=== PATIENT | female | born 1960 | race Caucasian/White ===

== ENCOUNTER 2022-12-28 13:47 | Outpatient (CLI) | payer OTHER, SELFPAY | END 2022-12-28 13:48 | disposition home or self-care (01) | PROVIDERS: Visit Provider Registered Nurse | DX: R30.0 Dysuria (principal); N39.0 Urinary tract infection, site not specified | CPT/HCPCS: 87086; 87186 ==

== ENCOUNTER 2023-01-09 20:38 | Inpatient (IN) | payer OTHER, SELFPAY ==
[2023-01-09] VITALS (42 sets, daily range): BP systolic 103–134; BP diastolic 67–100; PULSE 47–181; RESP 15–27; TEMP 37; O2SAT 96–98
[2023-01-09] MEDS: ADENOSINE 6 MG/2ML INJ IVP (21:05)
[2023-01-09] MEDS: ADENOSINE 6 MG/2ML INJ 12 MG IVP ×2 (21:09→21:19)
--- NOTE | 2023-01-09 21:12 | ED.NURSE ---
Patient given 3 doses of adenosine per MD Blank. Abhay at the bedside. Patient given 6mg at 2104 and 12mg at 2108. After first dose of adenosine patient converted to NSR but then went right back into SVT. Patient given second dose of adenosine and again converted back to SVT. Patient given 3rd dose of adenosine (12mg) given at 2118. Patient given 10mg of diltiazem at 2122.
[2023-01-09] MEDS: dilTIAZem 5 MG/ML inj 10 MG IVP ×2 (21:23→21:40)
[2023-01-09 21:28] LABS: Lactate* 2.7 mmol/L (0.5-1.9)
[2023-01-09 21:33] LABS: Eosinophils Percent Auto 0.2 % (0.0-7.0); Hematocrit 40.7 % (33.0-51.0); Hemoglobin* 14.1 gm/dL (12.0-16.0); Lymphocytes Percent Auto 4.2 % (20-44); Mean Corpuscular HGB Conc 35 gm/dL (32-36); Mean Corpuscular Hemoglobin 27 pg (26-34); Mean Corpuscular Volume 79 fL (80-100); Monocytes Percent Auto 6.3 % (0.0-11.0); Neutrophils Percent Auto 87.6 % (42.0-72.0); Platelet Count* 283 K/uL (140-440); RDW Coefficient of Variation % 13.9 % (11.5-15.5); Red Blood Count 5.17 m/uL (4.00-5.20); White Blood Count* 13.66 K/uL (4.50-11.00)
[2023-01-09 21:34] LABS: Basophils Percent Auto 0.1 % (0.0-3.0); Immature Granulocytes Pct Auto 1.6 %; Slide Review Reflex No
[2023-01-09 21:36] LABS: pH VBG 7.375 (7.32-7.43)
[2023-01-09 21:37] LABS: HCO3 VBG 19 mmol/L (21-28); PCO2 VBG 32 mmHG (40-50); PO2 VBG 36.2 mmHG (25-47)
[2023-01-09 21:41] LABS: Troponin, Point-of-Care* 0.02 ng/ml (0.01-0.04)
[2023-01-09] MEDS: 0.9 % SODIUM CHLORIDE 1000 ml 1,000 ML IV (21:42)
[2023-01-09] MEDS: 0.9 % SODIUM CHLORIDE 1000 ml 1,000 ML 6000 ML IV (21:45)
[2023-01-09] MEDS: INSULIN INF 100 UNIT/100 ML 100 UNIT/100 ML BAG IVPB ×2 (21:46→22:39)
[2023-01-09 21:51] LABS: Magnesium* 1.5 mg/dL (1.5-2.6)
[2023-01-09 21:52] LABS: Calcium* 9.3 mg/dL (8.4-10.6)
[2023-01-09 22:07] LABS: Blood Urea Nitrogen* 30 mg/dL (7-30); Carbon Dioxide* 16 mmol/L (20-32); Chloride* 80 mmol/L (96-114); Creatinine* 1.1 mg/dL (0.5-1.5); Estimated Glomerular Filt Rate 56 ml/min; Potassium* 4.8 mmol/L (3.6-5.1); Sodium* 118 mmol/L (135-149)
[2023-01-09 22:08] LABS: Alanine Aminotransferase* 18 U/L (4-35); Albumin* 3.9 g/dL (3.3-5.0); Alkaline Phosphatase* 147 U/L (40-150); Aspartate Amino Transferase* 17 U/L (12-35); Bilirubin Direct* 0.8 mg/dL (0.0-0.5); Bilirubin Total* 1.2 mg/dL (0.1-1.5); Glucose* 622 mg/dL (60-115); Total Protein* 8.1 g/dL (6.0-8.3)
[2023-01-09 22:21] LABS: Erythrocyte SedimentationRate* 75 mm/hr (2-20); Phosphorus* 3.5 mg/dL (2.5-4.5)
[2023-01-09 22:24] LABS: Appearance Urine Cloudy (Clear); Bilirubin Urine Negative (Negative); Blood Urine 1+ (Negative); Color Urine Yellow (Yellow); Glucose Urine 3+ (Negative); Ketones Urine 2+ (Negative); Leukocyte Esterase Urine 1+ (Negative); Nitrite Urine Negative (Negative); Protein Urine Negative (Negative); Specific Gravity Urine <= 1.005 (1.000-1.030); Urobilinogen Urine 0.2 (0.2-1.0)
[2023-01-09 22:29] LABS: C Reactive Protein* 38.6 mg/dL (0.5-1.0)
[2023-01-09 22:32] LABS: Hemoglobin A1C* 13.99 % (0-5.6)
--- NOTE | 2023-01-09 22:42 | CRLHL7_ITS ---
For Patients: As a result of the Century Cures Act, medical imaging exams and procedure reports are released immediately into your electronic medical record. You may view this report before your referring provider. If you have questions, please contact your health care provider. INDICATION: Weakness. TECHNIQUE: Chest 2 views. COMPARISON: None. FINDINGS: Cardiovascular and mediastinum: Heart size and vasculature are normal in caliber and appearance. Lungs and pleural spaces: The lungs are clear. No pleural effusion or pneumothorax. Bones and soft tissues: Questionable vertebral plana of a lower thoracic vertebral body. Otherwise, unremarkable for age. IMPRESSION: No evidence of an acute pulmonary process. Questionable vertebral plana of a lower thoracic vertebral body. This could represent a confluence of shadows as well. Recommend correlation with site for focal tenderness. Recommend CT if there is concern for an acute injury. Dictated by Supa Reyes MD @ 01/09/2023 11:57:38 PM (Electronically Signed)
[2023-01-09 22:44] LABS: Troponin I* 0.03 ng/mL (0.01-0.04)
[2023-01-09 22:48] LABS: Bacteria Urine Few; Mucus Urine Few; Squamous Epithelial Cell Urine Few (None-Few)
--- NOTE | 2023-01-09 22:50 | ED.NURSE ---
Patient report given to Yudy FAM in CCU
--- NOTE | 2023-01-09 22:54 | ED_ITS ---
HPI - General Adult General Chief complaint: Weakness Stated complaint: weakness, lethargic Time Seen by Provider: 01/09/23 20:54 Source: patient Mode of arrival: ambulatory Limitations: no limitations History of Present Illness HPI narrative: 62-year-old female coming in today complaining of not feeling well. She states that she feels weak and tired has been feeling this way for several weeks. She states in the last 2-3 days her symptoms have gotten worse. She denies any chest pain. She is not short of breath. She denies any abdominal discomfort. She states that her appetite has not been very good for the last couple weeks and she has been losing weight. She denies any diarrhea. She does endorse increased urinary frequency and the feeling that she can never quite empty her bladder. No fevers or chills. No sick contacts that she is aware of. She was recently diagnosed with a UTI after she went to the urgent care and treated with Macrobid she feels like her UTI symptoms did get a little bit better however when they then returned. She denies any recent illness cough, congestion or sore throat. Patient does not have a primary care provider and does not doctor regularly. She takes no medications. Related Data Home Medications Medication Instructions Recorded Confirmed No Known Home Medications 01/09/23 01/09/23 Allergies Allergy/AdvReac Type Severity Reaction Status Date / Time No Known Drug Allergies Allergy Verified 01/09/23 20:56 Review of Systems Status of ROS: Reports: 10 or more systems reviewed and unremarkable except as noted in History and below [facility] Medical History Diabetes mellitus ?E11.9 - Type 2 diabetes mellitus without complications (ICD-10) Hyperosmolar hyperglycemic state (HHS) ?E11.00 - Type 2 diabetes mellitus with hyperosmolarity without nonketotic hyperglycemic-hyperosmolar coma (NKHHC) (ICD-10) Family History (Updated 01/09/23 @ 23:04 by Blaine Cantrell MD) Brother Diabetes High blood pressure Father Diabetes High blood pressure Social History Smoking Status: Never smoker Exam Narrative: Exam Narrative: Well-nourished well-developed patient in no acute distress. Alert and oriented x3. Answers questions appropriately. Mood and affect are appropriate. Thoughts are goal oriented and rational. No tangential or magical thinking noted. Patient speaks in full sentences without needing to catch her breath. HEENT: Normocephalic atraumatic. Pupils are equally round reactive to light. Extraocular muscles are intact. Conjunctivae are moist without any icterus noted. Dry mucous membranes. Posterior pharynx is normal. Neck is soft without any lymphadenopathy or thyromegaly. No masses are appreciated. Cardiovascular: Tachycardic with a pulse of 180, regular rhythm. No murmurs appreciated. Lungs: Clear to auscultation bilaterally no wheezes rhonchi or rales are appreciated. Patient takes deep breaths without any discomfort. Abdomen: Soft and nontender nondistended with normal bowel sounds. No guarding or rebound. No masses or organomegaly appreciated. Extremities: Bilateral lower extremities are without edema. Skin: Well perfused without any obvious rashes. Const: Vital Signs, click to edit/add: Vital Signs - 24 hr 01/09/23 20:56 01/09/23 21:51 01/09/23 21:52 Temperature Pulse Rate 97 111 H Pulse Rate [Right Pulse Oximeter] 180 H Respiratory Rate 24 Blood Pressure 111/76 Blood Pressure [Ri ght Upper Arm] 114/91 H Pulse Oximetry 98 97 97 Oxygen Delivery Me thod Room Air 01/09/23 21:53 01/09/23 21:54 01/09/23 21:56 Temperature Pulse Rate 110 H 112 H 114 H Pulse Rate [Right Pulse Oximeter] Respiratory Rate Blood Pressure Blood Pressure [Ri ght Upper Arm] Pulse Oximetry 97 96 97 Oxygen Delivery Hi thod 01/09/23 21:58 01/09/23 22:00 01/09/23 22:01 Temperature Pulse Rate 121 H 113 H 130 H Pulse Rate [Right Pulse Oximeter] Respiratory Rate Blood Pressure 130/83 Blood Pressure [Ri ght Upper Arm] Pulse Oximetry 96 96 97 Oxygen Delivery Me thod 01/09/23 22:02 01/09/23 22:04 01/09/23 22:06 Temperature Pulse Rate 112 H 117 H 117 H Pulse Rate [Right Pulse Oximeter] Respiratory Rate Blood Pressure Blood Pressure [Ri ght Upper Arm] Pulse Oximetry 97 97 98 Oxygen Delivery Hi thod 01/09/23 22:08 01/09/23 21:07 01/09/23 20:46 Temperature Pulse Rate 118 H Pulse Rate [Right Pulse Oximeter] 176 H Respiratory Rate 27 H Blood Pressure Blood Pressure [Ri ght Upper Arm] 122/85 121/100 H Pulse Oximetry 97 98 Oxygen Delivery Me thod 01/09/23 20:53 01/09/23 21:03 01/09/23 21:05 Temperature 98.6 F Pulse Rate Pulse Rate [Right Pulse Oximeter] 178 H 176 H 47 L Respiratory Rate 20 22 Blood Pressure Blood Pressure [Ri ght Upper Arm] 114/91 H 104/87 112/76 Pulse Oximetry 98 98 97 Oxygen Delivery Me thod Room Air Room Air 01/09/23 21:06 01/09/23 21:08 01/09/23 21:09 Temperature Pulse Rate Pulse Rate [Right Pulse Oximeter] 181 H 174 H 55 L Respiratory Rate 22 23 24 Blood Pressure Blood Pressure [Ri ght Upper Arm] 123/86 123/90 H 111/87 Pulse Oximetry 97 96 96 Oxygen Delivery Me thod Room Air 01/09/23 21:28 01/09/23 21:40 01/09/23 21:21 Temperature Pulse Rate Pulse Rate [Right Pulse Oximeter] 112 H 156 H 121 H Respiratory Rate 20 23 20 Blood Pressure Blood Pressure [Ri ght Upper Arm] 125/79 129/89 132/90 H Pulse Oximetry 97 97 97 Oxygen Delivery Me thod Room Air 01/09/23 21:36 01/09/23 22:50 01/09/23 21:19 Temperature Pulse Rate Pulse Rate [Right Pulse Oximeter] 156 H 116 H 67 Respiratory Rate 22 21 21 Blood Pressure Blood Pressure [Ri ght Upper Arm] 124/93 H 113/83 Pulse Oximetry 96 97 98 Oxygen Delivery Me thod 01/09/23 21:20 Temperature Pulse Rate Pulse Rate [Right Pulse Oximeter] 122 H Respiratory Rate 21 Blood Pressure Blood Pressure [Ri ght Upper Arm] 129/90 H Pulse Oximetry 98 Oxygen Delivery Me thod Course Course Hospital Course: IV was immediately established an EKG was done showing supraventricular tachycardia. Labs were drawn and patient received 6 mg of IV adenosine. Patient's pulse went into the 70s for a few seconds before going back into SVT at a pulse of 177. We repeated the adenosine dose at 12 mg without success and a 2nd time at 12 mg. At this time we got her her pulse into the 150s. Repeat EKG showing sinus tachycardia. Did then proceed with a dose of IV Cardizem. In the meantime patient had received already a L of normal saline and a 2 L was started. A bedside Accu-Chek to showed a glucose of greater than 500. Patient received 10 units of regular insulin and insulin drip was started. Labs showed significant hyponatremia, glucose of over 600, elevated lactate. In patient's presentation and labs were consistent with hyperosmolar hyperglycemic state of untreated type 2 diabetes. Patient remained hemodynamically stable, we did get her pulse to come down into the 1-teens after fluids and a no other dose of IV Cardizem. Repeat EKG showing continued sinus tachycardia, no longer in SVT. Vital Signs Vital signs: Initial Vital Signs Blood Pressure 121/100 H 01/09/23 20:46 Blood Pressure Mean 107 01/09/23 20:46 Vital Signs Blood Pressure 121/100 H 01/09/23 20:46 Temperature 98.6 F 01/09/23 21:03 Pulse Rate 116 H 01/09/23 22:50 Respiratory Rate 21 01/09/23 22:50 Blood Pressure 130/83 01/09/23 22:01 Pulse Oximetry 97 01/09/23 22:50 Oxygen Delivery Method Room Air 01/09/23 21:28 Medical Decision Making MDM Narrative Medical decision making narrative: 62-year-old female with diabetes mellitus and hyper osmolar hyperglycemic state, presenting with SVT. Patient will be admitted for further management. Lab Data Lab results reviewed: Yes I reviewed the patient's lab results Labs: Lab Results 01/09/23 01/09/23 Range/Units 21:00 21:17 WBC 13.66 H (4.50-11.00) K/uL RBC 5.17 (4.00-5.20) m/uL Hgb 14.1 (12.0-16.0) gm/dL Hct 40.7 (33.0-51.0) % MCV 79 L (80-100) fL MCH 27 (26-34) pg MCHC 35 (32-36) gm/dL RDW Coeff of Hammad 13.9 (11.5-15.5) % Plt Count 283 (140-440) K/uL Neut % (Auto) 87.6 H (42.0-72.0) % Lymph % (Auto) 4.2 L (20-44) % Mcdonald % (Auto) 6.3 (0.0-11.0) % Eos % (Auto) 0.2 (0.0-7.0) % Baso % (Auto) 0.1 (0.0-3.0) % Neut # (Auto) 12.00 H (1.7-7.0) K/uL Lymph # (Auto) 0.60 L (0.90-2.90) K/uL Mcdonald # (Auto) 0.90 (0.00-0.90) K/UL Eos # (Auto) 0.00 (0.00-0.50) K/uL Baso # (Auto) 0.00 (0.00-0.30) K/uL ESR 75 H (2-20) mm/hr VBG pH 7.375 (7.32-7.43) VBG pCO2 32 L (40-50) mmHG VBG pO2 36.2 (25-47) mmHG VBG HCO3 19 L (21-28) mmol/L Sodium 118 L* (135-149) mmol/L Potassium 4.8 (3.6-5.1) mmol/L Chloride 80 L (96-114) mmol/L Carbon Dioxide 16 L (20-32) mmol/L BUN 30 (7-30) mg/dL Creatinine 1.1 (0.5-1.5) mg/dL Estimated GFR 56 ml/min Glucose 622 H* (60-115) mg/dL Hemoglobin A1c 13.99 H (0-5.6) % Lactate 2.7 H (0.5-1.9) mmol/L Calcium 9.3 (8.4-10.6) mg/dL Phosphorus 3.5 (2.5-4.5) mg/dL Magnesium 1.5 (1.5-2.6) mg/dL Total Bilirubin 1.2 (0.1-1.5) mg/dL Direct Bilirubin 0.8 H (0.0-0.5) mg/dL AST 17 (12-35) U/L ALT 18 (4-35) U/L Alkaline Phosphatase 147 (40-150) U/L Troponin I 0.03 (0.01-0.04) ng/mL C-Reactive Protein 38.6 H (0.5-1.0) mg/dL Total Protein 8.1 (6.0-8.3) g/dL Albumin 3.9 (3.3-5.0) g/dL TSH 5.010 H (0.270-4.20) uIU/mL Urine Color Yellow (Yellow) Urine Appearance Cloudy A (Clear) Urine pH 5.0 (5.0-8.5) Ur Specific [place] <= 1.005 (1.000-1.030) Urine Protein Negative (Negative) Urine Glucose (UA) 3+ A (Negative) Urine Ketones 2+ A (Negative) Urine Blood 1+ A (Negative) Urine Nitrite Negative (Negative) Urine Bilirubin Negative (Negative) Urine Urobilinogen 0.2 (0.2-1.0) Ur Leukocyte Esterase 1+ A (Negative) Urine RBC 2-5 A (0-2) Urine WBC 5-10 A (0-5) Ur Squamous Epith Cells Few (None-Few) Urine Bacteria Few A (None) Urine Mucus Few A (None) POC Troponin I 0.02 (0.01-0.04) ng/ml ECG Data Attestation: I personally reviewed and interpreted this ECG as follows: Critical Care Time Critical Care Time Total Critical Care Time in Minutes: 60 Discharge Plan Discharge Clinical Impression: Hyperosmolar hyperglycemic state (HHS), Diabetes mellitus, Hyponatremia, SVT (supraventricular tachycardia) Patient Disposition: Admitted As Inpatient Prescriptions: No Action No Known Home Medications Follow Up/Referrals: Provider,Not a Local [Primary Care Provider] -
--- NOTE | 2023-01-09 22:55 | PM.IMHP1 ---
Hospitalist- H&P: HPI History of Present Illness Date Seen: 01/09/23 Chief complaint: weakness, lethargic Narrative: Tomasa Guillen is a 62 year old female with no significant past medical history presents to the emergency room after syncopal episode at home. She is on the toilet when she had brief loss of consciousness witnessed by her . For 1-2 months she has had urinary urgency and frequency. Twelve days ago she was diagnosed with a UTI with positive leukocyte esterase and 10-25 white cells per high-power field. At that time urinalysis also showed ketones and glucosuria. She received Macrobid and reports that she had improvement in her symptoms but still is having polyuria. On presentation the emergency department she was in SVT with a heart rate of 177. Blood sugar was 622. She was given adenosine and fluids and now is in sinus tachycardia. She was started on insulin drip and her blood sugar is now 487. She has no previous history of cardiac problems or diabetes. She does not note in usual thirst but she has been feeling lightheaded, fatigue, malaise, poor appetite. No chest pain, shortness of breath, vomiting, diarrhea, abdominal pain, fever, cold. She has had some cough recently. She had COVID infection in September. She gets no regular medical attention. She believes her last doctor appointment was 7 or 8 years ago. She has had no medical screening or wellness checks. Her brothers and father have diabetes. Her also has diabetes, diagnosed 2 years ago Review of Systems Narrative: She has been feeling well except as noted above. [facility] Medical History Diabetes mellitus ?E11.9 - Type 2 diabetes mellitus without complications (ICD-10) Hyperosmolar hyperglycemic state (HHS) ?E11.00 - Type 2 diabetes mellitus with hyperosmolarity without nonketotic hyperglycemic-hyperosmolar coma (NKHHC) (ICD-10) Family History (Updated 01/09/23 @ 23:04 by Blaine Cantrell MD) Brother Diabetes High blood pressure Father Diabetes High blood pressure Social History (Updated 01/09/23 @ 23:06 by Blaine Cantrell MD) Narrative: She lives with her in [place]. Two adult children also live with them. She works for an insurance company processing claims. She does not smoke. She rarely drinks alcohol. She does not get routine medical care. Has not had routine medical screening or a medical appointment in at least 7 or 8 years. Code status is full. Her is healthcare power of warehouse operations manager. Smoking Status: Never smoker Meds Home Medications and Allergies Home Medications Medication Instructions Recorded Confirmed Type No Known Home Medications 01/09/23 01/09/23 History Home Medication Comments: None Allergies Allergy/AdvReac Type Severity Reaction Status Date / Time No Known Drug Allergies Allergy Verified 01/09/23 20:56 Exam Narrative: Exam Narrative: She is alert and appears in no distress. She is oriented to her circumstances and gives her own history. Eyes are normal. No facial asymmetry. Extraocular movements are full. Oropharynx with dry mucous membranes. Neck is supple without mass or adenopathy. No tenderness. Respirations are clear to auscultation. Good air exchange in all lung alcantara. Cardiovascular: S1, S2, regular tachycardia. No murmur gallop or rub. Abdomen: Bowel sounds active. Abdomen is soft without tenderness or mass. External genitalia normal. Extremities are cool to touch. She has intact pulses in all 4 extremities. Somewhat sluggish capillary refill. Const: Vital Signs, click to edit/add: Vital Signs - 24 hr 01/09/23 20:56 01/09/23 21:51 01/09/23 21:52 Temperature Pulse Rate 97 111 H Pulse Rate [Right Pulse Oximeter] 180 H Respiratory Rate 24 Blood Pressure 111/76 Blood Pressure [Ri ght Upper Arm] 114/91 H Pulse Oximetry 98 97 97 Oxygen Delivery Me thod Room Air 01/09/23 21:53 01/09/23 21:54 01/09/23 21:56 Temperature Pulse Rate 110 H 112 H 114 H Pulse Rate [Right Pulse Oximeter] Respiratory Rate Blood Pressure Blood Pressure [Ri ght Upper Arm] Pulse Oximetry 97 96 97 Oxygen Delivery Me thod 01/09/23 21:58 01/09/23 22:00 01/09/23 22:01 Temperature Pulse Rate 121 H 113 H 130 H Pulse Rate [Right Pulse Oximeter] Respiratory Rate Blood Pressure 130/83 Blood Pressure [Ri ght Upper Arm] Pulse Oximetry 96 96 97 Oxygen Delivery Me thod 01/09/23 22:02 01/09/23 22:04 01/09/23 22:06 Temperature Pulse Rate 112 H 117 H 117 H Pulse Rate [Right Pulse Oximeter] Respiratory Rate Blood Pressure Blood Pressure [Ri ght Upper Arm] Pulse Oximetry 97 97 98 Oxygen Delivery Me thod 01/09/23 22:08 01/09/23 21:07 01/09/23 20:46 Temperature Pulse Rate 118 H Pulse Rate [Right Pulse Oximeter] 176 H Respiratory Rate 27 H Blood Pressure Blood Pressure [Ri ght Upper Arm] 122/85 121/100 H Pulse Oximetry 97 98 Oxygen Delivery Me thod 01/09/23 20:53 01/09/23 21:03 01/09/23 21:05 Temperature 98.6 F Pulse Rate Pulse Rate [Right Pulse Oximeter] 178 H 176 H 47 L Respiratory Rate 20 22 Blood Pressure Blood Pressure [Ri ght Upper Arm] 114/91 H 104/87 112/76 Pulse Oximetry 98 98 97 Oxygen Delivery Me thod Room Air Room Air 01/09/23 21:06 01/09/23 21:08 01/09/23 21:09 Temperature Pulse Rate Pulse Rate [Right Pulse Oximeter] 181 H 174 H 55 L Respiratory Rate 22 23 24 Blood Pressure Blood Pressure [Ri ght Upper Arm] 123/86 123/90 H 111/87 Pulse Oximetry 97 96 96 Oxygen Delivery Me thod Room Air 01/09/23 21:28 01/09/23 21:40 01/09/23 21:21 Temperature Pulse Rate Pulse Rate [Right Pulse Oximeter] 112 H 156 H 121 H Respiratory Rate 20 23 20 Blood Pressure Blood Pressure [Ri ght Upper Arm] 125/79 129/89 132/90 H Pulse Oximetry 97 97 97 Oxygen Delivery Me thod Room Air 01/09/23 21:22 01/09/23 21:36 01/09/23 22:50 Temperature Pulse Rate Pulse Rate [Right Pulse Oximeter] 118 H 156 H 116 H Respiratory Rate 15 22 21 Blood Pressure Blood Pressure [Ri ght Upper Arm] 132/87 124/93 H Pulse Oximetry 97 96 97 Oxygen Delivery Me thod Room Air 01/09/23 21:19 01/09/23 21:20 Temperature Pulse Rate Pulse Rate [Right Pulse Oximeter] 67 122 H Respiratory Rate 21 21 Blood Pressure Blood Pressure [Ri ght Upper Arm] 113/83 129/90 H Pulse Oximetry 98 98 Oxygen Delivery Me thod Documenting provider has reviewed patient's vital signs: yes Hospitalist - H&P: Result Labs Labs: Short CBC 01/09/23 Range/Units 21:00 WBC 13.66 H (4.50-11.00) K/uL Hgb 14.1 (12.0-16.0) gm/dL Hct 40.7 (33.0-51.0) % Plt Count 283 (140-440) K/uL BMP 01/09/23 21:00 Sodium 118 L* Potassium 4.8 Chloride 80 L Carbon Dioxide 16 L BUN 30 Creatinine 1.1 Glucose 622 H* Calcium 9.3 Cardiac Enzymes 01/09/23 Range/Units 21:00 Troponin I 0.03 (0.01-0.04) ng/mL Liver Function 01/09/23 Range/Units 21:00 Total Bilirubin 1.2 (0.1-1.5) mg/dL Direct Bilirubin 0.8 H (0.0-0.5) mg/dL AST 17 (12-35) U/L ALT 18 (4-35) U/L Alkaline Phosphatase 147 (40-150) U/L Albumin 3.9 (3.3-5.0) g/dL Urine 01/09/23 Range/Units 21:17 Urine Color Yellow (Yellow) Urine Appearance Cloudy A (Clear) Urine pH 5.0 (5.0-8.5) Ur Specific [place] <= 1.005 (1.000-1.030) Urine Protein Negative (Negative) Urine Glucose (UA) 3+ A (Negative) ECG Attestation: I personally reviewed and interpreted this ECG as follows: (Multiple ED EKGs obtained and reviewed. Initially had a SVT with a pulse of 177. After adenosine had sinus tachycardia with Mobitz type 1 av block which then resolved and was just a sinus tachycardia after that.) Assessment and Plan Assessment and plan (1) Diabetes mellitus: Problem comment: New diagnosis. 1-2 months of polyuria. Likely type 2 diabetes. Initial treatment with insulin. Status: Acute (2) Hyperosmolar hyperglycemic state (HHS): Problem comment: Hyperglycemia with dehydration and mild acidosis. Status: Acute (3) SVT (supraventricular tachycardia): Problem comment: Resolved with fluid resuscitation and adenosine Status: Acute (4) Hyponatremia: Problem comment: Secondary to hyperglycemia Status: Acute (5) Dehydration: Problem comment: Secondary to hyperglycemia and polyuria Status: Acute Plan Patient is mid to the hospital for fluid resuscitation, correction of dehydration and electrolyte abnormalities, management of hyperglycemia and transition to outpatient diabetes management plan. Also evaluate for other comorbid conditions.
[2023-01-09] MEDS: LACTATED RINGERS 1000 ML 1,000 ML IV (23:24)
[2023-01-09 23:38] LABS: Lactate* 2.1 mmol/L (0.5-1.9)
[2023-01-09 23:55] LABS: Chloride* 83 mmol/L (96-114)
[2023-01-09 23:58] LABS: Carbon Dioxide* 18 mmol/L (20-32); Creatinine* 0.8 mg/dL (0.5-1.5); Estimated Glomerular Filt Rate 83 ml/min
[2023-01-09 23:59] LABS: Blood Urea Nitrogen* 25 mg/dL (7-30); Calcium* 8.2 mg/dL (8.4-10.6)
[2023-01-10] VITALS (21 sets, daily range): BP systolic 96–136; BP diastolic 54–79; PULSE 82–898; RESP 16–20; TEMP 36.4–37.2; O2SAT 95–98; BMI 29.4
[2023-01-10 00:12] LABS: Glucose* 370 mg/dL (60-115)
[2023-01-10 00:22] LABS: Sodium* 126 mmol/L (135-149)
[2023-01-10 00:23] LABS: Potassium* 3.9 mmol/L (3.6-5.1)
[2023-01-10] MEDS: 5 % DEXTROSE IN LAC RINGER'S 1,000 ML 125 ML IV (00:35)
[2023-01-10] MEDS: MAGNESIUM IV 2 GM/50 ML PIGGYBACK IVPB ×2 (00:35→08:34)
[2023-01-10 07:14] LABS: Basophils Percent Auto 0.1 % (0.0-3.0); Eosinophils Percent Auto 0.1 % (0.0-7.0); Hematocrit 36.1 % (33.0-51.0); Hemoglobin* 12.3 gm/dL (12.0-16.0); Immature Granulocytes Pct Auto 0.4 %; Mean Corpuscular HGB Conc 34 gm/dL (32-36); Mean Corpuscular Hemoglobin 27 pg (26-34); Mean Corpuscular Volume 79 fL (80-100); Monocytes Percent Auto 10.4 % (0.0-11.0); Platelet Count* 241 K/uL (140-440); Red Blood Count 4.58 m/uL (4.00-5.20); White Blood Count* 12.53 K/uL (4.50-11.00)
[2023-01-10] MEDS: ADENOSINE 6 MG/2ML INJ IVP (07:24)
[2023-01-10 07:25] LABS: Slide Review Reflex No
[2023-01-10 07:28] LABS: Chloride* 94 mmol/L (96-114); Potassium* 3.7 mmol/L (3.6-5.1); Sodium* 128 mmol/L (135-149)
[2023-01-10] MEDS: ADENOSINE 6 MG/2ML INJ 12 MG IVP (07:30)
[2023-01-10 07:31] LABS: Blood Urea Nitrogen* 23 mg/dL (7-30); Carbon Dioxide* 29 mmol/L (20-32); Creatinine* 0.8 mg/dL (0.5-1.5); Est. Creatinine Clearance* 45.54; Estimated Glomerular Filt Rate 83 ml/min
[2023-01-10 07:32] LABS: Calcium* 8.7 mg/dL (8.4-10.6); Glucose* 100 mg/dL (60-115)
[2023-01-10] MEDS: dilTIAZem 5 MG/ML inj 10 MG IVP (07:34)
--- NOTE | 2023-01-10 07:40 | PC.NURSE ---
Patient to the unit at 2315 with spouse Mike. A&O x3. C/o weakness and fatigue. Insulin drip initiated per protocol. BG check at 0615 108 with lethargy and diaphoresis . Magan updated and verbal order to pause insulin and recheck in 1 hour. BG at 705 109. MD updated and insulin drip d/c. HR in low 100's. At shift change (07) patient went into SVT. See oncoming RN note.
[2023-01-10 08:03] LABS: C Reactive Protein* 33.1 mg/dL (0.5-1.0); Troponin I* 0.07 ng/mL (0.01-0.04)
[2023-01-10] MEDS: dilTIAZem 30 MG TABLET PO ×3 (08:34→20:18)
[2023-01-10] MEDS: SODIUM CHLORIDE 0.9 % (FLUSH) 10 ML SYRINGE 5 ML IVF ×2 (08:59→21:25)
--- NOTE | 2023-01-10 09:07 | P.IMPN_ITS ---
Progress Note: A&P Assessment and plan (1) SVT (supraventricular tachycardia): Problem details: Improved with diltiazem. EKG today by my interpretation is sinus tachycardia, occasional PACs. Due to recurrent SVT, I have ordered an ECHO. She may need outpatient f/u with cardiology/EP. Status: Acute (2) Hyperosmolar hyperglycemic state (HHS): Problem details: Hyperglycemia with dehydration and mild acidosis. Improved. Stop insulin gtt. Start LA insulin and ISS ACHS. Diabetic teaching. I spoke with pt and about establishing care with PCP outpatient for ongoing diabetic care/preventative medicine. We also discussed HgbA1C of 14% and how she may be able to transition to oral diabetic medications after about a month on insulin. Status: Acute (3) Diabetes mellitus: Problem details: New diagnosis. Hgb A1C 14%. 1-2 months of polyuria. Likely type 2 diabetes. Initial treatment with insulin. Status: Acute (4) Dehydration: Problem details: Secondary to hyperglycemia and polyuria. Resolving. Discontinue IV fluids and encourage oral fluids. Status: Acute (5) Hyponatremia: Problem details: Secondary to hyperglycemia. Good slow improvement, recheck tomorrow. Status: Acute (6) Elevated troponin: Problem details: mildly elevated, asymptomatic, likely associated with SVT. Recheck in a few hours. Status: Acute Plan CCU time spent is 60 minutes, includes time spent in direct patient care for SVT event this morning, discussions about care with staff, discussions with patient and , and reviewing labs, diagnostics, medications, and notes. Subjective Time Seen by Provider: 07:15 Date Seen: 01/10/23 Interval history: This is a 62-year-old woman who came in last night with near syncopal episodes, marked hyperglycemia, new diagnosis of diabetes mellitus, and SVT. In the ER there were several attempts to improve her rapid heart rate with adenosine, however these were unsuccessful, but she did respond well to IV diltiazem. Around 6:00 a.m. this morning for insulin drip was discontinued because of sugars that were now normalized and rapidly trending down. She had been started on Levemir last evening, which likely explains that trend. Around 7 this morning she went back into SVT with a heart rate near 160. She was sleepy, but she had been awake all night, and systolic blood pressures were high 90s to 110s. We tried adenosine 6 mg and then 12 mg x1, without affect. I then gave her diltiazem 10 mg IV push and she responded nicely to this. She is now more alert and back to her usual self. She denies any chest discomfort, dizziness or lightheadedness, shortness of breath, malaise or fatigue now or during the episode earlier. Around 9am I went back and spoke with Patito and her , Mike. We discussed SVT, DM, insulin, HgbA1C and plan of care. I answered their questions. Exam Narrative: Exam Narrative: General: No acute distress. Lethargic at 1st, now home awake alert and oriented. Mild pallor. No jaundice. Oropharynx: Clear. Mucous membranes moist. Cardiovascular: Regular and tachycardic at 1st, now mildly tachycardic and regular. No murmurs, gallops, or rubs. Respiratory: Clear to auscultation bilaterally. No wheezes or crackles. Abdomen: Obese. Bowel sounds present. Soft, nondistended, nontender. Extremities: Trace pretibial edema. No mottling, sluggish capillary refill. Const: Vital Signs, click to edit/add: Vital Signs - 24 hr 01/09/23 20:56 01/09/23 21:51 01/09/23 21:52 Temperature Pulse Rate 97 111 H Pulse Rate [Left A pical] Pulse Rate [Right Pulse Oximeter] 180 H Pulse Rate [Right] Respiratory Rate 24 Blood Pressure 111/76 Blood Pressure [Le ft Arm] Blood Pressure [Ri ght Upper Arm] 114/91 H Pulse Oximetry 98 97 97 [facility] 01/09/23 21:53 01/09/23 21:54 01/09/23 21:56 Temperature Pulse Rate 110 H 112 H 114 H Pulse Rate [Left A pical] Pulse Rate [Right Pulse Oximeter] Pulse Rate [Right] Respiratory Rate Blood Pressure Blood Pressure [Le ft Arm] Blood Pressure [Ri ght Upper Arm] Pulse Oximetry 97 96 97 [facility] 01/09/23 21:58 01/09/23 22:00 01/09/23 22:01 Temperature Pulse Rate 121 H 113 H 130 H Pulse Rate [Left A pical] Pulse Rate [Right Pulse Oximeter] Pulse Rate [Right] Respiratory Rate Blood Pressure 130/83 Blood Pressure [Le ft Arm] Blood Pressure [Ri ght Upper Arm] Pulse Oximetry 96 96 97 Oxygen Delivery Me thod 01/09/23 22:02 01/09/23 22:04 01/09/23 22:06 Temperature Pulse Rate 112 H 117 H 117 H Pulse Rate [Left A pical] Pulse Rate [Right Pulse Oximeter] Pulse Rate [Right] Respiratory Rate Blood Pressure Blood Pressure [Le ft Arm] Blood Pressure [Ri ght Upper Arm] Pulse Oximetry 97 97 98 Oxygen Delivery [place] thod 01/09/23 22:08 01/09/23 21:07 01/09/23 20:46 Temperature Pulse Rate 118 H Pulse Rate [Left A pical] Pulse Rate [Right Pulse Oximeter] 176 H Pulse Rate [Right] Respiratory Rate 27 H Blood Pressure Blood Pressure [Le ft Arm] Blood Pressure [Ri ght Upper Arm] 122/85 121/100 H Pulse Oximetry 97 98 [facility] 01/09/23 20:53 01/09/23 21:03 01/09/23 21:05 Temperature 98.6 F Pulse Rate Pulse Rate [Left A pical] Pulse Rate [Right Pulse Oximeter] 178 H 176 H 47 L Pulse Rate [Right] Respiratory Rate 20 22 Blood Pressure Blood Pressure [Le ft Arm] Blood Pressure [Ri ght Upper Arm] 114/91 H 104/87 112/76 Pulse Oximetry 98 98 97 [facility] Room Air 01/09/23 21:06 01/09/23 21:08 01/09/23 21:09 Temperature Pulse Rate Pulse Rate [Left A pical] Pulse Rate [Right Pulse Oximeter] 181 H 174 H 55 L Pulse Rate [Right] Respiratory Rate 22 23 24 Blood Pressure Blood Pressure [Le ft Arm] Blood Pressure [Ri ght Upper Arm] 123/86 123/90 H 111/87 Pulse Oximetry 97 96 96 Oxygen Delivery Me thod Room Air 01/09/23 21:28 01/09/23 21:40 01/09/23 21:21 Temperature Pulse Rate Pulse Rate [Left A pical] Pulse Rate [Right Pulse Oximeter] 112 H 156 H 121 H Pulse Rate [Right] Respiratory Rate 20 23 20 Blood Pressure Blood Pressure [Le ft Arm] Blood Pressure [Ri ght Upper Arm] 125/79 129/89 132/90 H Pulse Oximetry 97 97 97 Oxygen Delivery Me thod Room Air 01/09/23 21:22 01/09/23 21:36 01/09/23 22:50 Temperature Pulse Rate Pulse Rate [Left A pical] Pulse Rate [Right Pulse Oximeter] 118 H 156 H 116 H Pulse Rate [Right] Respiratory Rate 15 22 21 Blood Pressure Blood Pressure [Le ft Arm] Blood Pressure [Ri ght Upper Arm] 132/87 124/93 H Pulse Oximetry 97 96 97 Oxygen Delivery Me thod Room Air 01/09/23 21:19 01/09/23 21:20 01/09/23 21:24 Temperature Pulse Rate Pulse Rate [Left A pical] Pulse Rate [Right Pulse Oximeter] 67 122 H 111 H Pulse Rate [Right] Respiratory Rate 21 21 20 Blood Pressure Blood Pressure [Le ft Arm] Blood Pressure [Ri ght Upper Arm] 113/83 129/90 H 118/76 Pulse Oximetry 98 98 96 Oxygen Delivery Me thod 01/09/23 21:25 01/09/23 21:26 01/09/23 22:17 Temperature Pulse Rate 110 H Pulse Rate [Left A pical] Pulse Rate [Right Pulse Oximeter] 112 H 112 H Pulse Rate [Right] Respiratory Rate 24 20 Blood Pressure Blood Pressure [Le ft Arm] Blood Pressure [Ri ght Upper Arm] 120/81 122/80 Pulse Oximetry 96 97 98 Oxygen Delivery Me thod 01/09/23 22:20 01/09/23 22:21 01/09/23 22:30 Temperature Pulse Rate 106 H 105 H 98 Pulse Rate [Left A pical] Pulse Rate [Right Pulse Oximeter] Pulse Rate [Right] Respiratory Rate Blood Pressure 132/73 Blood Pressure [Le ft Arm] Blood Pressure [Ri ght Upper Arm] Pulse Oximetry 97 97 97 Oxygen Delivery Me thod 01/09/23 22:31 01/09/23 22:40 01/09/23 22:42 Temperature Pulse Rate 106 H 101 H 102 H Pulse Rate [Left A pical] Pulse Rate [Right Pulse Oximeter] Pulse Rate [Right] Respiratory Rate Blood Pressure 113/82 103/67 Blood Pressure [Le ft Arm] Blood Pressure [Ri ght Upper Arm] Pulse Oximetry 97 98 98 Oxygen Delivery Me thod 01/09/23 22:50 01/09/23 21:10 01/09/23 21:12 Temperature Pulse Rate 105 H 123 H 176 H Pulse Rate [Left A pical] Pulse Rate [Right Pulse Oximeter] Pulse Rate [Right] Respiratory Rate 21 22 Blood Pressure 134/91 H 130/94 H Blood Pressure [Le ft Arm] Blood Pressure [Ri ght Upper Arm] Pulse Oximetry 97 Oxygen Delivery Me thod 01/09/23 23:00 01/10/23 00:12 01/10/23 01:00 Temperature 98.7 F 97.5 F L Pulse Rate Pulse Rate [Left A pical] Pulse Rate [Right Pulse Oximeter] Pulse Rate [Right] 101 H 103 H Respiratory Rate 20 20 Blood Pressure Blood Pressure [Le ft Arm] 109/75 96/61 Blood Pressure [Ri ght Upper Arm] Pulse Oximetry 96 96 97 Oxygen Delivery Me od Room Air Room Air 01/10/23 03:00 01/10/23 00:05 01/10/23 04:00 Temperature 98 F Pulse Rate 97 Pulse Rate [Left A pical] Pulse Rate [Right Pulse Oximeter] Pulse Rate [Right] 105 H 105 H Respiratory Rate 18 Blood Pressure Blood Pressure [Le ft Arm] 98/54 L Blood Pressure [Ri ght Upper Arm] Pulse Oximetry 97 [facility] 01/10/23 05:00 01/10/23 07:24 01/10/23 07:30 Temperature 97.9 F Pulse Rate Pulse Rate [Left A pical] 153 H 158 H Pulse Rate [Right Pulse Oximeter] Pulse Rate [Right] 100 Respiratory Rate 20 16 16 Blood Pressure Blood Pressure [Le ft Arm] 107/67 103/65 136/79 Blood Pressure [Ri ght Upper Arm] Pulse Oximetry 98 95 95 [facility] Room Air Room Air 01/10/23 07:34 01/10/23 07:38 01/10/23 07:00 Temperature Pulse Rate Pulse Rate [Left A pical] 156 H 103 H Pulse Rate [Right Pulse Oximeter] Pulse Rate [Right] Respiratory Rate Blood Pressure Blood Pressure [Le ft Arm] 117/67 117/67 Blood Pressure [Ri ght Upper Arm] Pulse Oximetry 95 Oxygen Delivery Me thod Documenting provider has reviewed patient's vital signs: yes Labs Labs: Laboratory Results - last 24 hr 01/09/23 01/09/23 01/09/23 21:00 21:17 23:00 WBC 13.66 H RBC 5.17 Hgb 14.1 Hct 40.7 MCV 79 L MCH 27 MCHC 35 RDW Coeff of Hammad 13.9 Plt Count 283 Neut % (Auto) 87.6 H Lymph % (Auto) 4.2 L [place] % (Auto) 6.3 Eos % (Auto) 0.2 Baso % (Auto) 0.1 Neut # (Auto) 12.00 H Lymph # (Auto) 0.60 L [place] # (Auto) 0.90 Eos # (Auto) 0.00 Baso # (Auto) 0.00 ESR 75 H VBG pH 7.375 VBG pCO2 32 L VBG pO2 36.2 VBG HCO3 19 L Sodium 118 L* 126 L Potassium 4.8 3.9 Chloride 80 L 83 L Carbon Dioxide 16 L 18 L BUN 30 25 Creatinine 1.1 0.8 Estimated Creat Clear Estimated GFR 56 83 Glucose 622 H* 370 H* Hemoglobin A1c 13.99 H Lactate 2.7 H 2.1 H Calcium 9.3 8.2 L Phosphorus 3.5 Magnesium 1.5 Total Bilirubin 1.2 Direct Bilirubin 0.8 H AST 17 ALT 18 Alkaline Phosphatase 147 Troponin I 0.03 C-Reactive Protein 38.6 H Total Protein 8.1 Albumin 3.9 TSH 5.010 H Urine Color Yellow Urine Appearance Cloudy A Urine pH 5.0 Ur Specific [place] <= 1.005 Urine Protein Negative Urine Glucose (UA) 3+ A Urine Ketones 2+ A Urine Blood 1+ A Urine Nitrite Negative Urine Bilirubin Negative Urine Urobilinogen 0.2 Ur Leukocyte Esterase 1+ A Urine RBC 2-5 A Urine WBC 5-10 A Ur Squamous Epith Cells Few Urine Bacteria Few A Urine Mucus Few A POC Troponin I 0.02 01/10/23 07:00 WBC 12.53 H RBC 4.58 Hgb 12.3 Hct 36.1 MCV 79 L MCH 27 MCHC 34 RDW Coeff of Hammad 14.0 Plt Count 241 Neut % (Auto) 82.0 H Lymph % (Auto) 7.0 L [place] % (Auto) 10.4 Eos % (Auto) 0.1 Baso % (Auto) 0.1 Neut # (Auto) 10.30 H Lymph # (Auto) 0.90 [place] # (Auto) 1.30 H Eos # (Auto) 0.00 Baso # (Auto) 0.00 ESR VBG pH VBG pCO2 VBG pO2 VBG HCO3 Sodium 128 L Potassium 3.7 Chloride 94 L Carbon Dioxide 29 BUN 23 Creatinine 0.8 Estimated Creat Clear 45.54 Estimated GFR 83 Glucose 100 Hemoglobin A1c Lactate Calcium 8.7 Phosphorus Magnesium Total Bilirubin Direct Bilirubin AST ALT Alkaline Phosphatase Troponin I 0.07 H* C-Reactive Protein 33.1 H Total Protein Albumin TSH Urine Color Urine Appearance Urine pH Ur Specific [place] Urine Protein Urine Glucose (UA) Urine Ketones Urine Blood Urine Nitrite Urine Bilirubin Urine Urobilinogen Ur Leukocyte Esterase Urine RBC Urine WBC Ur Squamous Epith Cells Urine Bacteria Urine Mucus POC Troponin I
[2023-01-10 09:15] LABS: Cholesterol* 169 mg/dL (90-199); Triglycerides* 135 mg/dL (40-149)
[2023-01-10 09:16] LABS: HDL Cholesterol* 36 mg/dL (>=50); LDL Cholesterol Calculated 106 mg/dL (<100)
[2023-01-10 12:48] LABS: Troponin I* 0.05 ng/mL (0.01-0.04)
[2023-01-10] MEDS: NYSTATIN CREAM 30 GM 1 APPLIC TOPICAL ×2 (13:50→21:21)
--- NOTE | 2023-01-10 14:39 | PC.NURSE ---
Patient alert and oriented, pleasant and cooperative. At 0724 pt. was given a 6mg dose of adenosine per Dr. Benitez at bedside. Patient given 12mg at 0730. After first dose of adenosine patient converted to NSR but then went right back into SVT. Patient given second dose of adenosine and again converted back to SVT. Dr. Benitez ordered for patient to be administered 10mg of diltiazem at 0734 and pt. converted to NSR. Pt.'s BG monitored throughout shift and sliding scale used to control BG. see eMAR. Pt. IV in right AC SL. and IV in left AC SL. Pt. coccyx is reddened and yeasty as well as groin area. Nystatin and Mepilex used. Pt. denies pain, c/o weakness and is an assist of 1 to bedside commode and chair.
--- NOTE | 2023-01-10 18:46 | PC.NURSE ---
Addendum entered by Manda Anderson RN 01/10/23 19:02: Tele showing NSR with PACs and heart rate in the 80s-90s. Original Note: End of Shift: Patient pleasant and cooperative. Afebrile. C/o some stiffness/discomfort in knees, denies need for PRN pain medication. Up to bathroom and chair with 1 assist and walker. Tolerating regular diet with no nausea. BG 341 before dinner, updated MD.
[2023-01-10] MEDS: polyethylene glycoL 3350 17 GM PACK PO (18:52)
[2023-01-10] MEDS: AMOXICILLIN 250 MG CAPSULE 500 MG PO (21:20)
[2023-01-10] MEDS: SENNOSIDES 1 TAB TABLET PO (21:20)
[2023-01-10] MEDS: NYSTATIN POWDER 1 APPLIC TOPICAL (21:21)
[2023-01-11] VITALS (12 sets, daily range): BP systolic 88–111; BP diastolic 55–79; PULSE 72–88; RESP 14–18; TEMP 36.2–36.9; O2SAT 95–98; BMI 29.4
[2023-01-11] MEDS: dilTIAZem 30 MG TABLET PO ×2 (04:31→09:58)
--- NOTE | 2023-01-11 05:42 | PC.NURSE ---
call: Pt w/ BP 94/64, HR 72 @ 0215, Cardizem held. Noted pt's HR to fluctuate from 80-120's, although nothing sustained, starting around 0330. BP 94/77 @ 0400. Call placed to Dr. Jose @ 0410. Dr. Jose called back @ 0424, new order to give Cardizem unless SBP <90.
--- NOTE | 2023-01-11 05:46 | PC.NURSE ---
Shift note: Pt alert, able to make needs known, denies any pain. HS OQ=196. Up to BR w/ SBA of 1 and walker, states starting to feel stronger, PT/OT to assess today. Urine is extremely cloudy and strong smelling, MD started Amoxicillin for UTI. Coccyx improving, maceration lessening w/ use of Nystatin cream. (See MD call note for BP/HR update).
[2023-01-11 06:09] LABS: Basophils Absolute Auto 0.01 K/uL (0.00-0.30); Basophils Percent Auto 0.1 % (0.0-3.0); Eosinophils Absolute Auto 0.04 K/uL (0.00-0.50); Eosinophils Percent Auto 0.5 % (0.0-7.0); Hemoglobin* 10.3 gm/dL (12.0-16.0); Immature Granulocytes Abs Auto 0.02 K/uL (0.00-0.30); Immature Granulocytes Pct Auto 0.3 %; Lymphocytes Percent Auto 12.8 % (20-44); Mean Corpuscular HGB Conc 34 gm/dL (32-36); Mean Corpuscular Hemoglobin 27 pg (26-34); Mean Corpuscular Volume 78 fL (80-100); Neutrophils Percent Auto 77.3 % (42.0-72.0); Platelet Count* 186 K/uL (140-440); RDW Coefficient of Variation % 13.9 % (11.5-15.5); Red Blood Count 3.84 m/uL (4.00-5.20); White Blood Count* 7.56 K/uL (4.50-11.00)
[2023-01-11 06:10] LABS: Slide Review Reflex No
[2023-01-11 06:16] LABS: Chloride* 94 mmol/L (96-114); Potassium* 3.4 mmol/L (3.6-5.1); Sodium* 125 mmol/L (135-149)
[2023-01-11 06:19] LABS: Blood Urea Nitrogen* 25 mg/dL (7-30); Carbon Dioxide* 27 mmol/L (20-32); Creatinine* 0.7 mg/dL (0.5-1.5); Est. Creatinine Clearance* 45.54; Estimated Glomerular Filt Rate 97 ml/min
[2023-01-11 06:20] LABS: Calcium* 7.9 mg/dL (8.4-10.6); Glucose* 95 mg/dL (60-115)
[2023-01-11 06:33] LABS: C Reactive Protein* 23.6 mg/dL (0.5-1.0)
--- NOTE | 2023-01-11 07:47 | P.IMPN_ITS ---
Progress Note: A&P Assessment and plan (1) SVT (supraventricular tachycardia): Problem details: I spoke with Dr. Haynes today who took a look at the EKG from this morning. He thinks this is multifocal atrial tachycardia and thought she would do better with beta-nelson rather than diltiazem. He suggested 25 mg of metoprolol tartrate twice a day. Shared he got her dose of diltiazem this morning, and I do not think her blood pressure will allow for both metoprolol and diltiazem on board, so I will start metoprolol this afternoon. Status: Acute (2) Hyperosmolar hyperglycemic state (HHS): Problem details: Hyperglycemia with dehydration and mild acidosis. Resolved. Status: Resolved (3) Diabetes mellitus: Problem details: New diagnosis. Hgb A1C 14%. 1-2 months of polyuria. Likely type 2 diabetes. Initial treatment with insulin. Continue LA insulin, mealtime insulin, and ISS ACHS. This will be likely her homegoing regimen. Diabetic teaching. Will need to establish care with PCP outpatient for ongoing diabetic care/preventative medicine. Status: Acute (4) Dehydration: Problem details: Secondary to hyperglycemia and polyuria. Status: Resolved (5) Hyponatremia: Problem details: Secondary to hyperglycemia. Good slow improvement, recheck tomorrow. Status: Acute (6) Elevated troponin: Problem details: mildly elevated, asymptomatic, likely associated with SVT. Peak 0.07. Status: Acute (7) E. coli UTI: Problem details: On amoxicillin. Status: Acute Plan Her heart rate was irregular this morning for which I got an EKG. By my interpretation it appears that she is in sinus tachycardia with premature supraventricular complexes. Her heart rate at the time of the EKG was 116. I spoke with Cardiology as above and will switch her over to metoprolol from diltiazem. She was crackly this morning for which I have given her Lasix. She had an 2 days ago echocardiogram which was unremarkable. Transfer her out of the CCU to the floor. Continue to replace potassium orally. Sodium remains low, stable and asymptomatic. Trial of fluid restriction today. Diuresis with Lasix may also be helpful. Monitor. Time Spent With Patient Total time spent: Today I spent 35 minutes rounding on the patient. Greater than 50% included discussing care with Cardiology, the team, reviewing data, updating and managing the care plan. I also went back and updated the patient and her when he got here Subjective Time Seen by Provider: 07:43 Date Seen: 01/11/23 Interval history: Patito is feeling well today. Her HR was labile overnight, sometimes low, sometimes high, often irregular, but not in atrial fibrillation, always sinus. BG also under better control, but needed better mealtime control, so she was started on scheduled mealtime insulin yesterday. Exam Narrative: Exam Narrative: General: No acute distress. Awake, alert, oriented. Mild pallor. No jaundice. Oropharynx: Clear. Mucous membranes moist. Cardiovascular: Irregularly irregular. No murmurs, gallops, or rubs. Respiratory: Bibasilar crackles, no wheezes. Abdomen: Obese. Bowel sounds present. Soft, nondistended, nontender. Extremities: Trace pretibial edema. No mottling, capillary refill brisk. Const: Vital Signs, click to edit/add: Vital Signs - 24 hr 01/10/23 09:00 01/10/23 13:00 01/10/23 07:50 Temperature 98.0 F 98.2 F Pulse Rate 100 Pulse Rate [Left A pical] 109 H 91 Pulse Rate [Right] Respiratory Rate 16 16 Blood Pressure [Le ft Arm] 117/69 100/60 Pulse Oximetry 96 97 Oxygen Delivery Me od Room Air Room Air 01/10/23 11:00 01/10/23 11:00 01/10/23 14:30 Temperature 98.9 F Pulse Rate Pulse Rate [Left A pical] 90 Pulse Rate [Right] 89 89 Respiratory Rate 16 16 16 Blood Pressure [Le ft Arm] 114/66 111/70 Pulse Oximetry 95 [facility] 01/10/23 15:00 01/10/23 15:00 01/10/23 15:00 Temperature Pulse Rate 89 Pulse Rate [Left A pical] 89 Pulse Rate [Right] Respiratory Rate 16 Blood Pressure [Le ft Arm] Pulse Oximetry 96 Oxygen Delivery [place] thod 01/10/23 20:15 01/10/23 23:00 01/10/23 23:00 Temperature 98.8 F Pulse Rate 898 H Pulse Rate [Left A pical] Pulse Rate [Right] 88 Respiratory Rate 16 Blood Pressure [Le ft Arm] 112/59 L Pulse Oximetry 98 97 [facility] 01/10/23 23:00 01/10/23 23:00 01/11/23 02:15 Temperature 98.9 F 98.5 F Pulse Rate Pulse Rate [Left A pical] Pulse Rate [Right] 82 87 72 Respiratory Rate 16 16 Blood Pressure [Le ft Arm] 109/70 94/64 Pulse Oximetry 97 97 Oxygen Delivery Me thod Room Air Room Air 01/11/23 04:00 Temperature Pulse Rate Pulse Rate [Left A pical] Pulse Rate [Right] Respiratory Rate Blood Pressure [Le ft Arm] 94/77 Pulse Oximetry Oxygen Delivery Me thod Documenting provider has reviewed patient's vital signs: yes Labs Labs: Laboratory Results - last 24 hr 01/10/23 01/10/23 01/10/23 04:00 07:00 12:08 WBC RBC Hgb Hct MCV MCH MCHC RDW Coeff of Hammad Plt Count Neut % (Auto) Lymph % (Auto) [place] % (Auto) Eos % (Auto) Baso % (Auto) Neut # (Auto) Lymph # (Auto) [place] # (Auto) Eos # (Auto) Baso # (Auto) Sodium 128 L Potassium 3.7 Chloride 94 L Carbon Dioxide 29 BUN 23 Creatinine 0.8 Estimated Creat Clear 45.54 Estimated GFR 83 Glucose 100 Calcium 8.7 Troponin I 0.07 H* 0.05 H C-Reactive Protein 33.1 H Triglycerides 135 Cholesterol 169 LDL Cholesterol, Calc 106 H HDL Cholesterol 36 L 01/11/23 05:56 WBC 7.56 RBC 3.84 L Hgb 10.3 L Hct 30.0 L MCV 78 L MCH 27 MCHC 34 RDW Coeff of Hammad 13.9 Plt Count 186 Neut % (Auto) 77.3 H Lymph % (Auto) 12.8 L [place] % (Auto) 9.0 Eos % (Auto) 0.5 Baso % (Auto) 0.1 Neut # (Auto) 5.80 Lymph # (Auto) 1.00 [place] # (Auto) 0.70 Eos # (Auto) 0.04 Baso # (Auto) 0.01 Sodium 125 L Potassium 3.4 L Chloride 94 L Carbon Dioxide 27 BUN 25 Creatinine 0.7 Estimated Creat Clear 45.54 Estimated GFR 97 Glucose 95 Calcium 7.9 L Troponin I C-Reactive Protein 23.6 H Triglycerides Cholesterol LDL Cholesterol, Calc HDL Cholesterol
[2023-01-11] MEDS: POTASSIUM BICARB 25 MEQ EFFERVESCENT TAB PO ×3 (08:30→12:04)
[2023-01-11] MEDS: NYSTATIN POWDER 1 APPLIC TOPICAL ×2 (08:31→20:41)
[2023-01-11] MEDS: NYSTATIN CREAM 30 GM 1 APPLIC TOPICAL ×3 (08:31→20:41)
[2023-01-11] MEDS: FUROSEMIDE 10 MG/ML inj 20 MG IVP (08:31)
[2023-01-11] MEDS: SODIUM CHLORIDE 0.9 % (FLUSH) 10 ML SYRINGE 5 ML IVF ×2 (08:32→20:43)
[2023-01-11] MEDS: SENNOSIDES 1 TAB TABLET PO ×2 (08:40→20:41)
[2023-01-11] MEDS: AMOXICILLIN 250 MG CAPSULE 500 MG PO ×3 (08:40→20:41)
[2023-01-11] MEDS: METOPROLOL TARTRATE 25 MG TABLET PO (17:06)
--- NOTE | 2023-01-11 18:45 | PC.NURSE ---
Pt pleasant and cooperative during shift. Pt alert and oriented. Pt SBA with walker. Pt walked in hallways 2 times during shift. Pt?s VSS. Pt?s telemetry strip in AM showed sinus arrhythmia with PAC?s. The second telemetry strip in the afternoon showed normal sinus. Pt has bouts of SVT when walking with therapy. When Pt walked with nurse no SVT noted. Pt has had no complaints of pain during shift. Pt had a new medication started metoprolol. Pt?s BP was 92/65 and pulse 81. Rivet Sticker spoke with Hospitalist about holding medication. The hospitalist instructed the typewriter assembler to wait an hour. The typewriter assembler rechecked vitals BP 104/63 and Pulse 81. Medication administered. Pt and educated on medications, Diabetes and insulins being administered. Pt and were receptive to information and had good informative questions.?
[2023-01-11] MEDS: bisacodyL 10 MG SUPP.RECT PR (20:41)
[2023-01-12 03:00] VITALS: BP 119/82; PULSE 88; RESP 16; TEMP 36.8; O2SAT 99
--- NOTE | 2023-01-12 06:10 | ED.NURSE ---
pt pleasant and cooperative, slept throughout night. used call light for bathroom use. pt denies any s/s of tachycardia, pt does have HR fluctuations from 70s to 120s but resolves within a few seconds back below 90s.
[2023-01-12 06:42] LABS: Basophils Absolute Auto 0.02 K/uL (0.00-0.30); Basophils Percent Auto 0.4 % (0.0-3.0); Eosinophils Absolute Auto 0.09 K/uL (0.00-0.50); Eosinophils Percent Auto 1.7 % (0.0-7.0); Hematocrit 30.4 % (33.0-51.0); Hemoglobin* 10.4 gm/dL (12.0-16.0); Immature Granulocytes Abs Auto 0.02 K/uL (0.00-0.30); Immature Granulocytes Pct Auto 0.4 %; Lymphocytes Percent Auto 13.7 % (20-44); Mean Corpuscular HGB Conc 34 gm/dL (32-36); Mean Corpuscular Hemoglobin 27 pg (26-34); Mean Corpuscular Volume 79 fL (80-100); Monocytes Percent Auto 11.1 % (0.0-11.0); Neutrophils Percent Auto 72.7 % (42.0-72.0); Platelet Count* 173 K/uL (140-440); Red Blood Count 3.84 m/uL (4.00-5.20); White Blood Count* 5.33 K/uL (4.50-11.00)
[2023-01-12 06:45] LABS: Slide Review Reflex No
[2023-01-12 06:56] LABS: Chloride* 95 mmol/L (96-114)
[2023-01-12 06:57] LABS: Potassium* 3.8 mmol/L (3.6-5.1); Sodium* 126 mmol/L (135-149)
[2023-01-12 06:59] LABS: Creatinine* 0.7 mg/dL (0.5-1.5); Est. Creatinine Clearance* 45.54; Estimated Glomerular Filt Rate 97 ml/min
[2023-01-12 07:00] VITALS: BP 111/75; PULSE 83; RESP 16; TEMP 36.8; O2SAT 98
[2023-01-12 07:00] LABS: Blood Urea Nitrogen* 27 mg/dL (7-30); Calcium* 7.8 mg/dL (8.4-10.6); Carbon Dioxide* 30 mmol/L (20-32); Glucose* 171 mg/dL (60-115)
[2023-01-12 07:04] VITALS: PULSE 80
--- NOTE | 2023-01-12 07:18 | PM.DS1 ---
DS: Providers Provider Time Seen by Provider: 07:30 Date Seen: 01/12/23 Date of admission: 01/09/23 23:05 Primary care physician: Not a Local Provider Admitting Clinician: Blaine Cantrell MD Consults: 01/09/23 22:19 Consult to Nutrition [CONS] Routine Comment: Reason for consult:: Diabetic Teaching 01/10/23 20:04 Consult to Occupational Therapy [CONS] Routine Comment: Reason(s) for OT Consult:: Evaluate and Treat Any Restrictions?:: No Restrictions Consult to Physical Therapy [CONS] Routine Comment: Reason(s) for PT Consult:: Evaluate and Treat Any Restrictions?:: No Restrictions Attending Physician on discharge: Cleo Benitez MD Date of Discharge: 01/12/23 DS: Diagnosis Discharge Diagnosis (1) E. coli UTI: Status: Acute Problem details: On amoxicillin. (2) Elevated troponin: Status: Acute Problem details: mildly elevated, asymptomatic, likely associated with SVT. Peak 0.07. (3) Dehydration: Status: Resolved Problem details: Secondary to hyperglycemia and polyuria. (4) Hyponatremia: Status: Acute Problem details: Etiology unclear, suspect secondary to hyperglycemia. Asymptomatic. Continue fluid restriction and monitor as outpatient. (5) SVT (supraventricular tachycardia): Status: Acute Problem details: I spoke with Dr. Haynes 01/11/23 who took a look at the EKG from this morning. He thinks this is multifocal atrial tachycardia and thought she would do better with beta-nelson rather than diltiazem. He suggested 25 mg of metoprolol tartrate twice a day. This was started 01/11/23 pm and she has done well with this overnight. (6) Hyperosmolar hyperglycemic state (HHS): Status: Resolved Problem details: Hyperglycemia with dehydration and mild acidosis. Resolved. (7) Diabetes mellitus: Status: Acute Problem details: New diagnosis. Hgb A1C 14%. 1-2 months of polyuria. Likely type 2 diabetes. Initial treatment with insulin. Continue LA insulin, mealtime insulin, and ISS ACHS. Diabetic teaching. Will need to establish care with PCP outpatient for ongoing diabetic care/preventative medicine. DS: Summary Hospital Course Hospital Course: 62-year-old female who has not seen a doctor in 7-8 years came in with syncopal episodes and was noted to have a hyperosmolar hyperglycemic state, undiagnosed diabetes mellitus, and went and sustained SVT, which is suspected to be a multifocal atrial tachycardia. She was initiated on an insulin drip and has transitioned nicely over to long-acting insulin with mealtime short-acting insulin boluses. Additionally she has nicely on oral metoprolol for multifocal atrial tachycardia. She was started on amoxicillin a few days ago for an E coli UTI. She is discharging home today in stable condition. Please see above for further details. Time Spent with Patient Time attestation: Total time spent providing and/or coordinating discharge services: Exam Narrative: Exam Narrative: General: No acute distress. Awake, alert, oriented. Mild pallor. No jaundice. Cardiovascular: Irregularly irregular. No tachycardia. No murmurs, gallops, or rubs. Respiratory: Clear to auscultation. No crackles or wheezes. Abdomen: Obese. Bowel sounds present. Soft, nondistended, nontender. Extremities: No pretibial edema. No mottling, capillary refill brisk. Const: Vital Signs, click to edit/add: Vital Signs - 24 hr 01/11/23 07:47 01/11/23 07:47 01/11/23 11:40 Temperature 97.2 F L 97.8 F Pulse Rate Pulse Rate [Left A pical] 77 Pulse Rate [Right] 79 Respiratory Rate 14 18 Blood Pressure [Le ft Arm] 97/64 88/55 L Pulse Oximetry 95 95 98 Oxygen Delivery Me thod Nasal Cannula Room Air Oxygen Flow Rate 1 01/11/23 15:00 01/11/23 15:00 01/11/23 15:00 Temperature 97.3 F L Pulse Rate 75 Pulse Rate [Left A pical] Pulse Rate [Right] 81 Respiratory Rate 18 Blood Pressure [Le ft Arm] 94/65 Pulse Oximetry 96 96 Oxygen Delivery Me thod Room Air Oxygen Flow Rate 01/11/23 15:00 01/11/23 19:00 01/11/23 23:34 Temperature 97.8 F Pulse Rate Pulse Rate [Left A pical] Pulse Rate [Right] 81 82 Respiratory Rate 18 Blood Pressure [Le ft Arm] 111/79 Pulse Oximetry 98 98 Oxygen Delivery Me thod Room Air Oxygen Flow Rate 01/11/23 23:36 01/11/23 23:37 01/11/23 23:38 Temperature 98.1 F Pulse Rate 73 Pulse Rate [Left A pical] 73 73 Pulse Rate [Right] Respiratory Rate 16 Blood Pressure [Le ft Arm] 95/65 Pulse Oximetry 98 Oxygen Delivery Me thod Room Air Oxygen Flow Rate 01/12/23 03:00 Temperature 98.2 F Pulse Rate Pulse Rate [Left A pical] 88 Pulse Rate [Right] Respiratory Rate 16 Blood Pressure [Le ft Arm] 119/82 Pulse Oximetry 99 Oxygen Delivery Me thod Room Air Oxygen Flow Rate Documenting provider has reviewed patient's vital signs: yes DS: Data Data Completed and Pending Completed studies during hospitalization: 01/09/2023 8:50 p.m. EKG: Supraventricular tachycardia heart rate 177 beats per minute, abnormal QRS T angle. 01/09/2023 9:07 p.m. EKG: Sinus tachycardia with second-degree AV block, Mobitz type 1 with fusion complexes. Heart rate 87 beats per minute. Incomplete right bundle-branch block. T-wave abnormality. 01/10/2023 8:11 a.m. EKG: Sinus tachycardia with premature atrial complexes, heart rate 119 beats per minute. Nonspecific T-wave abnormality. 01/11/2023 7:09 a.m. EKG: Sinus rhythm with premature supraventricular complexes heart rate 116 beats per minute. Otherwise normal EKG. Ordering Physician: Blaine Cantrell M.D. Date of Service: 01/09/23 Procedure(s): XR chest 2V Accession Number(s): [id number] cc: Blaine Cantrell M.D.; Provider,Not a Local ~ For Patients: As a result of the Century Cures Act, medical imaging exams and procedure reports are released immediately into your electronic medical record. You may view this report before your referring provider. If you have questions, please contact your health care provider. INDICATION: Weakness. TECHNIQUE: Chest 2 views. COMPARISON: None. FINDINGS: Cardiovascular and mediastinum: Heart size and vasculature are normal in caliber and appearance. Lungs and pleural spaces: The lungs are clear. No pleural effusion or pneumothorax. Bones and soft tissues: Questionable vertebral plana of a lower thoracic vertebral body. Otherwise, unremarkable for age. IMPRESSION: No evidence of an acute pulmonary process. Questionable vertebral plana of a lower thoracic vertebral body. This could represent a confluence of shadows as well. Recommend correlation with site for focal tenderness. Recommend CT if there is concern for an acute injury. Dictated by Supa Reyes MD @ 01/09/2023 11:57:38 PM (Electronically Signed) Specimen: [id number] COMP Collected: 12/28/22-UNK Received: 12/28/22-1534 Source: Urine CC Sp Descrip: Sub Dr: FELIPE, Chayo Chang Other Dr: Procedure Result Site Urine Culture Final ML Organism 1 Escherichia coli Ur [place] Count >100,000 CFU/ml SMALL AMOUNT OF YEAST PRESENT. E coli HARRY RX --------- --- Ampicillin <=2 S Ampicillin/Sulbactam <=2 S Cefazolin <=4 S Cefepime <=1 S Cefoxitin <=4 S Ceftazidime <=1 S Ceftriaxone <=1 S Ciprofloxacin <=0.25 S Ertapenem <=0.5 S Gentamicin <=1 S Imipenem <=0.25 S Levofloxacin <=0.12 S Nitrofurantoin <=16 S Tobramycin <=1 S Trimethoprim/Sulfamethoxazole <=20 S Piperacillin/Tazobactam <=4 S Labs on day of discharge: Labs from last 24 hours 01/12/23 06:27 WBC 5.33 RBC 3.84 L Hgb 10.4 L Hct 30.4 L MCV 79 L MCH 27 MCHC 34 RDW Coeff of Hammad 14.0 Plt Count 173 Neut % (Auto) 72.7 H Lymph % (Auto) 13.7 L Amador % (Auto) 11.1 H Eos % (Auto) 1.7 Baso % (Auto) 0.4 Neut # (Auto) 3.90 Lymph # (Auto) 0.70 L Amador # (Auto) 0.60 Eos # (Auto) 0.09 Baso # (Auto) 0.02 Sodium Pending Potassium Pending Chloride Pending Carbon Dioxide Pending BUN Pending Creatinine Pending Estimated GFR Pending Glucose Pending Calcium Pending Discharge Plan Discharge Disposition: Home, Self-Care Date of Admission: 01/09/23 23:05 Attending Provider on Discharge: Cleo Benitez Primary Care Provider: Provider,Not a Local Condition: Improved Anticipated Discharge Date/Time: 01/12/23 10:35 Discharge Medications: New amoxicillin 250 mg Capsule 500 mg PO TID 4 Days Qty: 24 0RF Levemir FlexTouch U-100 Insuln 100 unit/mL (3 mL) Insulin Pen 30 unit subcut DAILY Qty: 3 0RF insulin aspart U-100 [Novolog FlexPen U-100 Insulin] 100 unit/mL (3 mL) Insulin Pen 12 unit subcut TIDWM Qty: 15 0RF insulin aspart U-100 [Novolog FlexPen U-100 Insulin] 100 unit/mL (3 mL) Insulin Pen See Rx Instructions .ROUTE .COMPLEX Qty: 15 0RF Rx Instructions: Blood Glucose 150 or less No coverage Blood Glucose 151-200 2 units Blood Glucose 201-250 4 units Blood Glucose 251-300 6 units Blood Glucose 301-350 8 units Blood Glucose 351 to 400 10 units Blood Glucose 401 and greater 12 units and recheck in 2 hours nystatin 100,000 unit/gram Cream 1 applic topical TID Qty: 15 0RF metoprolol tartrate 25 mg Tablet 25 mg PO BID Qty: 60 0RF nystatin 100,000 unit/gram Powder 1 applic topical BID Qty: 30 0RF sennosides [Senna Lax] 8.6 mg Tablet 8.6 mg PO BID PRN (Reason: constipation) Qty: 60 0RF (DME) blood-glucose meter [Accu-Chek Matilde Plus Meter] Misc See Rx Instructions .Route Qty: 1 0RF Rx Instructions: As directed (DME) Accu-Chek Matilde Plus test strp Strip See Rx Instructions .Route Qty: 100 0RF Rx Instructions: QID (DME) Sharps Container Misc See Rx Instructions .Route Qty: 1 0RF Rx Instructions: As directed (DME) lancets Misc See Rx Instructions .Route Qty: 200 0RF Rx Instructions: QID Discharge Orders: Discharge Order (Routine); Ordered 01/12/23 Ordered By: Cleo Benitez Patient Education: Diltiazem (By mouth), Hypoglycemia in a Person with Diabetes (DC), Diabetic Hyperglycemia (DC), Diabetes and Your Skin (DC), Diabetes and Nutrition (DC), Diabetes and Exercise (DC) Additional Instructions: Establish care with a primary care provider, see primary care provider in 5 days, BMP at this visit. Outpatient physical therapy to evaluate and treat. Check BG QID, record and use ISS to adjust mealtime insulin. Activity Level: No Restrictions Discharge Diet: Diabetic and 2000 ml Fluid Restriction Follow Up Appointments: Provider,Not a Local [Primary Care Provider] - Forms: MyHealth Info Instructions
[2023-01-12 07:55] VITALS: PULSE 83
[2023-01-12] MEDS: NYSTATIN POWDER 1 APPLIC TOPICAL (08:22)
[2023-01-12] MEDS: NYSTATIN CREAM 30 GM 1 APPLIC TOPICAL (08:22)
[2023-01-12] MEDS: METOPROLOL TARTRATE 25 MG TABLET PO (09:21)
[2023-01-12] MEDS: SENNOSIDES 1 TAB TABLET PO (09:21)
[2023-01-12] MEDS: AMOXICILLIN 250 MG CAPSULE 500 MG PO (09:21)
[2023-01-12] MEDS: SODIUM CHLORIDE 0.9 % (FLUSH) 10 ML SYRINGE 5 ML IVF (09:22)
--- NOTE | 2023-01-12 11:54 | PC.NURSE ---
Pt alert and oriented during shift. Pt was calm and cooperative. Pt had no complaints of pain. RN went through diabetic education with Pt and . RN demonstrated insulin administration and Pt demonstrated back. Pt refused Lunch blood glucose test, insulin administration and lunch tray. Pt stated she wanted to do administration herself once she returned home. Pt discharged home with . Pt sent home with short and long lasting insulin along with nystatin cream and powder.
== END 2023-01-12 11:45 | disposition home or self-care (01) | DRG 638 ==
LOC: ED 23:04 → MEDSURG 23:07
PROVIDERS: Family Medicine; Admitting Provider Family Medicine; Emergency Provider Family Medicine; Visit Provider Family Medicine
DX: E11.00 Type 2 diabetes mellitus with hyperosmolarity without nonketotic hyperglycemic-hyperosmolar coma (NKHHC) (principal); E87.1 Hypo-osmolality and hyponatremia; I47.1 Supraventricular tachycardia; N39.0 Urinary tract infection, site not specified; L89.152 Pressure ulcer of sacral region, stage 2; E86.0 Dehydration; R55 Syncope and collapse; B96.20 Unspecified Escherichia coli [E. coli] as the cause of diseases classified elsewhere; R53.1 Weakness; I44.1 Atrioventricular block, second degree; I45.19 Other right bundle-branch block; I49.1 Atrial premature depolarization
CPT/HCPCS: 36415; 71046; 80048; 80061; 80076; 81001; 82803; 82962; 83036; 83605; 83735; 84100; 84443; 84484; 85025; 85651; 86140; 87086; 93005; 93306; 94761; 97112; 97116; 97161; 97165; 97530; 97535; 99285; 99291; A9270; J0153; J1940; J3475; J3590; J7030; J7120

== ENCOUNTER 2023-06-15 07:57 | Outpatient (CLI) | payer OTHER, SELFPAY | END 2023-06-15 07:58 | disposition home or self-care (01) | PROVIDERS: PCP Family Medicine; Visit Provider Family Medicine | DX: D64.9 Anemia, unspecified (principal); E11.9 Type 2 diabetes mellitus without complications | CPT/HCPCS: 80048; 82728; 85025 ==

== ENCOUNTER 2023-09-29 07:51 | Outpatient (CLI) | payer OTHER, SELFPAY | END 2023-09-29 07:52 | disposition home or self-care (01) | LOC: NFLDREF 12:06 | PROVIDERS: PCP Family Medicine; Referring Provider Family Medicine; Visit Provider Family Medicine | DX: E11.9 Type 2 diabetes mellitus without complications (principal); D64.9 Anemia, unspecified | CPT/HCPCS: 80048; 80061; 84443; 85025 ==

== ENCOUNTER 2023-12-16 15:52 | Outpatient (CLI) | payer OTHER, SELFPAY | END 2023-12-16 15:53 | disposition home or self-care (01) | LOC: NFLDREF 12-29 10:04 | PROVIDERS: PCP Family Medicine; Referring Provider Family Medicine; Visit Provider Physician Assistant | DX: R30.0 Dysuria (principal); N39.0 Urinary tract infection, site not specified | CPT/HCPCS: 87086; 87186 ==

== ENCOUNTER 2024-01-03 07:47 | Outpatient (CLI) | payer OTHER, SELFPAY ==
[2024-01-03 14:38] LABS: Microalbumin Urine 7 mg/dL
[2024-01-03 14:41] LABS: Creatinine Urine 28.1 mg/dL; Microalbumin Creatinine Ratio 240 mg/g (0-30)
== END 2024-01-03 07:48 | disposition home or self-care (01) ==
LOC: FBOREF 07:50
PROVIDERS: PCP Family Medicine; Visit Provider Family Medicine
DX: N39.0 Urinary tract infection, site not specified (principal); E11.9 Type 2 diabetes mellitus without complications; D64.9 Anemia, unspecified
CPT/HCPCS: 81001; 82043; 82570; 87086; 87186

== ENCOUNTER 2024-03-17 10:52 | Outpatient (CLI) | payer OTHER, SELFPAY | END 2024-03-17 10:53 | disposition home or self-care (01) | LOC: NFLDREF 10:53 | PROVIDERS: PCP Family Medicine; Visit Provider Family Medicine | DX: N39.0 Urinary tract infection, site not specified (principal) | CPT/HCPCS: 87086; 87186 ==

== ENCOUNTER 2024-04-09 12:10 | Outpatient (CLI) | payer OTHER, SELFPAY | END 2024-04-09 12:11 | disposition home or self-care (01) | LOC: NFLDREF 22:55 | PROVIDERS: PCP Family Medicine; Referring Provider Family Medicine; Visit Provider Nurse Practitioner Family | DX: N30.90 Cystitis, unspecified without hematuria (principal); N39.0 Urinary tract infection, site not specified | CPT/HCPCS: 87086; 87186 ==

== ENCOUNTER 2024-06-03 14:16 | Outpatient (CLI) | payer OTHER, SELFPAY | END 2024-06-03 14:17 | disposition home or self-care (01) | LOC: NFLDREF 06-09 09:55 | PROVIDERS: PCP Family Medicine; Referring Provider Family Medicine; Visit Provider Nurse Practitioner Family | DX: R30.0 Dysuria (principal); N30.00 Acute cystitis without hematuria; E11.9 Type 2 diabetes mellitus without complications; D64.9 Anemia, unspecified; N39.0 Urinary tract infection, site not specified | CPT/HCPCS: 87086; 87186 ==

== ENCOUNTER 2024-08-10 11:27 | Outpatient (CLI) | payer MEDICARE, SELFPAY | END 2024-08-10 11:28 | disposition home or self-care (01) | PROVIDERS: PCP Family Medicine; Visit Provider Family Medicine | DX: D64.9 Anemia, unspecified (principal); E11.9 Type 2 diabetes mellitus without complications; N39.0 Urinary tract infection, site not specified; N30.01 Acute cystitis with hematuria | CPT/HCPCS: 80048; 80061; 84439; 84443; 85025; 87086; 87186 ==

== ENCOUNTER 2024-08-29 14:49 | Outpatient (CLI) | payer MEDICARE, SELFPAY | END 2024-08-29 14:50 | disposition home or self-care (01) | PROVIDERS: PCP Family Medicine; Visit Provider Family Medicine | DX: D64.9 Anemia, unspecified (principal); N28.9 Disorder of kidney and ureter, unspecified; N30.01 Acute cystitis with hematuria | CPT/HCPCS: 80053; 82607; 82747; 83735; 84100; 85025; 85045; 86140; 87086 ==

== ENCOUNTER 2024-08-30 10:01 | Emergency (ER) | payer MEDICARE, SELFPAY ==
[2024-08-30] VITALS (49 sets, daily range): BP systolic 94–128; BP diastolic 61–77; PULSE 91–115; RESP 18; TEMP 36.1–36.4; O2SAT 97–100; BMI 20.7
[2024-08-30 10:44] LABS: Lactate* 1.6 mmol/L (0.5-1.9)
--- NOTE | 2024-08-30 10:48 | ED_ITS ---
HPI - General Adult General Time Seen by Provider: 10:48 <Alexey Blevins MD - Last Filed: 08/30/24 15:00> Date Seen: 08/30/24 <Alexey Blevins MD - Last Filed: 08/30/24 15:00> Chief complaint: Urogenital Problems, Female <Alexey Blevins MD - Last Filed: 08/30/24 15:00> Stated complaint: urinary symptoms - CT Scan <Alexey Blevins MD - Last Filed: 08/30/24 15:00> Time Seen by Provider: 08/30/24 10:34 <Alexey Blevins MD - Last Filed: 08/30/24 15:00> History of Present Illness HPI narrative: Tomasa is a 64-year-old female with diabetes mellitus type 2 insulin dependent, remote history of SVT, chronic anemia, recurrent UTIs presents emerged department via and private car with urogenital problem. Patient states over the last couple weeks she has felt increased generalized weakness and lightheadedness, she states that she has been sitting a lot and developing a sore on her bottom. She denies any syncope. She did have a fall 1 week ago with no injury when she was trying to go the bathroom in the middle of the night. She denies any new urinary complaints, she had 2 days of diarrhea, she denies any abdominal pain or chest pain. She has not had any fevers or chills, she has had intermittent headache and sore throat. No sick contacts, she has been eating and drinking last, she denies any night sweats or recent weight loss. She has been doctoring Dr. Robbins, recent labs on 08/29 were concerning for AVIVA and possible UTI. Patient was called and instructed to come to the emergency department. <Alexey Blevins MD - Last Filed: 08/30/24 15:00> Related Data Home medications: Previous Rx's ?Medication ?Instructions ?Recorded lancets #200 ea 01/12/23 nystatin 100,000 unit/gram topical 1 applic topical BID #30 grams 01/12/23 powder sennosides 8.6 mg tablet (Senna 8.6 mg PO BID PRN constipation #60 01/28/23 Lax) tabs blood sugar diagnostic (Blood #300 ea 02/14/24 Glucose Test strips) estradiol 0.01% (0.1 mg/gram) 1 g vaginal 2XW #42.5 grams 08/10/24 vaginal cream (Estrace) metformin 500 mg tablet,extended 1,500 mg (3 x 500 mg) PO QDAY #270 08/10/24 release 24 hr tabs <Alexey Blevins MD - Last Filed: 08/30/24 15:00> Allergies/adverse reactions: Allergies Allergy/AdvReac Type Severity Reaction Status Date / Time cephalexin AdvReac Intermediate Diarrhea Verified 08/29/24 14:57 <Alexey Blevins MD - Last Filed: 08/30/24 15:00> Review of Systems Status of ROS: Reports: 10 or more systems reviewed and unremarkable except as noted in History and below <Alexey Blevins MD - Last Filed: 08/30/24 15:00> [facility] Medical History: Medical History (Updated 08/30/24 @ 14:46 by Alexey Blevins MD) Infection due to Enterobacter aerogenes ?A49.8 - Other bacterial infections of unspecified site (ICD-10) Type 2 diabetes mellitus, without long-term current use of insulin ?E11.9 - Type 2 diabetes mellitus without complications (ICD-10) E. coli UTI ?N39.0 - Urinary tract infection, site not specified (ICD-10) ?B96.20 - Unspecified Escherichia coli [E. coli] as the cause of diseases classified elsewhere (ICD-10) SVT (supraventricular tachycardia) ?I47.1 - Supraventricular tachycardia (ICD-10) Anemia ?D64.9 - Anemia, unspecified (ICD-10) Hyperosmolar hyperglycemic state (HHS) ?E11.00 - Type 2 diabetes mellitus with hyperosmolarity without nonketotic hyperglycemic-hyperosmolar coma (NKHHC) (ICD-10) <Alexey Blevins MD - Last Filed: 08/30/24 15:00> Family History: Family History (Updated 01/16/23 @ 14:58 by Jono Robbins MD) Brother Diabetes High blood pressure Father Diabetes High blood pressure Stroke Mother High blood pressure <Alexey Blevins MD - Last Filed: 08/30/24 15:00> Social History: Social History (Updated 09/28/23 @ 08:15 by Elissa Savage ~ RMA, RMA) Narrative: , Two adult children also live with them. She works for an insurance company processing claims. Non-smoker, Rare EtOH. Full code. What is your current living situation?: I presently have a place to live Problems where you live: no known problems In the past 12 months, utilities in danger of being shut off: no In the past 12 mos, have been you worried that your food would run out before you had money to buy more?: never true In the past 12 mos, the food you bought just didn't last and you didn't have money to buy more?: never true Highest level of school completed/degree received: Master's degree Smoking Status: Never smoker How often do you have a drink containing alcohol: monthly or less AUDIT-C Alcohol total score: 1 Non-prescribed substance use: denies use Caffeine: Yes How often does anyone, including family, friends and others, physically hurt you : never How often does anyone, including family, friends and others, insult or talk down to you: never How often does anyone, including family, friends and others, threaten you with harm: never How often does anyone, including family, friends and others, scream or curse at you: never service: No <Alexey Blevins MD - Last Filed: 08/30/24 15:00> Exam Narrative: Exam Narrative: General: No obvious distress laying comfortably, nontoxic in appearance HEENT: Tympanic membranes within normal limits bilaterally oropharynx is clear moist Extraocular muscles intact, neck is supple, no meningeal signs lungs: Clear to auscultation bilaterally Heart: Normal sinus rhythm S1-S2 Abdomen: Soft, bowel sounds present, nontender in all 4 quadrant Extremities: No lower extremity edema, +5 strength in all upper lower extremities Back is atraumatic Neuro: Alert awake and oriented x3 Psych: Mood and affect normal <Alexey Blevins MD - Last Filed: 08/30/24 15:00> Const: Vital Signs, click to edit/add: Vital Signs - 24 hr 08/30/24 22:00 08/30/24 22:02 Pulse Rate 114 H 113 H Blood Pressure 110/64 Pulse Oximetry 98 98 <Alexey Blevins MD - Last Filed: 08/30/24 15:00> Vital Signs, click to edit/add: Vital Signs - 24 hr 08/30/24 22:00 08/30/24 22:02 Pulse Rate 114 H 113 H Blood Pressure 110/64 Pulse Oximetry 98 98 <Estelita Newman MD - Last Filed: 08/30/24 19:18> Vital Signs, click to edit/add: Vital Signs - 24 hr 08/30/24 22:00 08/30/24 22:02 Pulse Rate 114 H 113 H Blood Pressure 110/64 Pulse Oximetry 98 98 <Jono Trinh MD - Last Filed: 08/31/24 13:06> Course Course ED Course: ED course: AIDET performed, vitals show tachycardia 115, she is afebrile, blood pressure 94/66, 97% on room air, normal respiratory rate, workup will include IV peripheral, 0.9 normal saline bolus, plan to repeat labs, CBC, CRP, CMP, magnesium, urinalysis urine culture, EKG. Will likely obtain imaging including CT abdomen pelvis without IV contrast based on renal function, CT head without IV contrast. Plan to rule out worsening AVIVA in the setting of possible infection versus obstruction. Less likely would need dialysis at this time, likely admit locally. <Alexey Blevins MD - Last Filed: 08/30/24 15:00> Reevaluation(s) Time of Reevaluation #1: 12:29 <Alexey Blevins MD - Last Filed: 08/30/24 15:00> Reevaluation #1: EKG showed sinus tachycardia, bpm 101, no acute ST change, CBC showed chronic anemia, no leukocytosis, CRP 34 0.2, comprehensive metabolic panel showed a metabolic acidosis, acute kidney injury, creatinine of 4.7, BUN 93, most likely pre renal, sodium 127, potassium 5.2 minimal change from previous. Lactate within normal limits, glucose 150, electrolytes otherwise normal <Alexey Blevins MD - Last Filed: 08/30/24 15:00> Time of Reevaluation #2: 12:56 <Alexey Blevins MD - Last Filed: 08/30/24 15:00> Reevaluation #2: Imaging: Impression: 1. Severe right-sided and moderate to severe left-sided hydroureteronephrosis without obstructing stones or lesions. 2. The bladder wall is thickened with multiple trabeculations/small diverticuli, measuring up to approximately 11 millimeters in thickness. 3. Findings may be secondary to outlet obstruction at the level of the urethra. 4. Additionally, bladder wall thickening can be seen with cystitis, correlate with urinalysis. 5. Solid 6 millimeter nodular like opacity seen in the medial aspect of the right lower lobe. Recommend correlation with prior imaging if available; otherwise, recommend CT chest in 3-6 months to reassess. Patient was updated on her imaging and urinalysis result 2+ blood, 3+ leukocyte esterase,>100 white blood cell, urine white blood cell clumps many, many bacteria, previous cultures showed E coli and Enterobacter which are pansensitive, will plan to give ceftriaxone 2 g IV. Patient would not want to go to all item, will reach out to [facility]. Spoke with [facility], beds available at [facility], patient would not require dialysis at this time. Bladder scan >[address] to [address] saunders catheter. <Alexey Blevins MD - Last Filed: 08/30/24 15:00> Time of Reevaluation #3: 14:26 <Estelita Newman MD - Last Filed: 08/30/24 19:18> Reevaluation #3: Have spoken with yeast stacker Dr. Trinh from [facility] regarding patient on behalf of Dr. Blevisn whom is currently occupied and unable to come to the phone. Reviewed case, labs. He feels that the patient should be placed on bicarbonate drip and be in the ICU, does not feel that she will need dialysis now. Hopefullly with correction of her obstruction her kidney function will improve. She still needs transfer for definitive and higher level of care including urology and nephrology. <Estelita Newman MD - Last Filed: 08/30/24 19:18> Additional Reevaluation(s): 7:16 p.m.: Patient's venous pH has improved to 7.33. This is very close to being able to stop the bicarb drip. Will go a few hours longer and recheck. When she has the bicarb drip off when her venous pH has corrected, will switch her to maintenance normal saline. She does have an acute kidney injury and thus certainly should benefit from low-dose kidney hydration, would consider 75 mL an hour. Her creatinine is back down to 4.2 as it was yesterday, sodium is now 128 which is certainly not over correcting too quickly. Her bicarb on her follow-up basic metabolic panel is 11 and is improving. <Estelita Newman MD - Last Filed: 08/30/24 19:18> 7:16 p.m.: Patient's venous pH has improved to 7.33. This is very close to being able to stop the bicarb drip. Will go a few hours longer and recheck. When she has the bicarb drip off when her venous pH has corrected, will switch her to maintenance normal saline. She does have an acute kidney injury and thus certainly should benefit from low-dose kidney hydration, would consider 75 mL an hour. Her creatinine is back down to 4.2 as it was yesterday, sodium is now 128 which is certainly not over correcting too quickly. Her bicarb on her follow-up basic metabolic panel is 11 and is improving. Ziggy -- received this patient at change of shift pending repeat venous blood gas and transfer. Currently receiving a bicarb drip in the setting of acute renal failure and metabolic acidosis due to urinary obstruction. Urinary tract infection as well as been treated with ceftriaxone. Remains afebrile. No pain complaints. VBG pH improved to 7.4. Has been transitioned to normal saline maintenance. Pending transfer. <Jono Trinh MD - Last Filed: 08/31/24 13:06> Consultations Consultation #1: Spoke with [facility], Dr. Macdonald, accepts care of the patient to [facility] ICU, patient to be transferred via ground ambulance once bed is available, with patient and family were in agreement this plan. All questions answered. <Alexey Blevins MD - Last Filed: 08/30/24 15:00> Vital Signs Vital signs: Initial Vital Signs Temperature 96.9 F L 08/30/24 10:07 Temperature Source Temporal Artery Scan 08/30/24 10:07 Pulse Rate 115 H 08/30/24 10:07 Respiratory Rate 18 08/30/24 10:07 Blood Pressure 94/66 08/30/24 10:07 Blood Pressure Mean 75 08/30/24 10:07 Pulse Oximetry 97 08/30/24 10:07 Oxygen Delivery Method Room Air 08/30/24 10:07 Vital Signs Temperature 96.9 F L 08/30/24 10:07 Pulse Rate 115 H 08/30/24 10:07 Respiratory Rate 18 08/30/24 10:07 Blood Pressure 94/66 08/30/24 10:07 Pulse Oximetry 97 08/30/24 10:07 Oxygen Delivery Method Room Air 08/30/24 10:07 Temperature 97.6 F 08/30/24 17:45 Pulse Rate 113 H 08/30/24 22:02 Respiratory Rate 18 08/30/24 10:07 Blood Pressure 110/64 08/30/24 22:02 Pulse Oximetry 98 08/30/24 22:02 Oxygen Delivery Method Room Air 08/30/24 17:45 <Alexey Blevins MD - Last Filed: 08/30/24 15:00> Initial Vital Signs Temperature 96.9 F L 08/30/24 10:07 Temperature Source Temporal Artery Scan 08/30/24 10:07 Pulse Rate 115 H 08/30/24 10:07 Respiratory Rate 18 08/30/24 10:07 Blood Pressure 94/66 08/30/24 10:07 Blood Pressure Mean 75 08/30/24 10:07 Pulse Oximetry 97 08/30/24 10:07 Oxygen Delivery Method Room Air 08/30/24 10:07 Vital Signs Temperature 96.9 F L 08/30/24 10:07 Pulse Rate 115 H 08/30/24 10:07 Respiratory Rate 18 08/30/24 10:07 Blood Pressure 94/66 08/30/24 10:07 Pulse Oximetry 97 08/30/24 10:07 Oxygen Delivery Method Room Air 08/30/24 10:07 Temperature 97.6 F 08/30/24 17:45 Pulse Rate 113 H 08/30/24 22:02 Respiratory Rate 18 08/30/24 10:07 Blood Pressure 110/64 08/30/24 22:02 Pulse Oximetry 98 08/30/24 22:02 Oxygen Delivery Method Room Air 08/30/24 17:45 <Estelita Newman MD - Last Filed: 08/30/24 19:18> Initial Vital Signs Temperature 96.9 F L 08/30/24 10:07 Temperature Source Temporal Artery Scan 08/30/24 10:07 Pulse Rate 115 H 08/30/24 10:07 Respiratory Rate 18 08/30/24 10:07 Blood Pressure 94/66 08/30/24 10:07 Blood Pressure Mean 75 08/30/24 10:07 Pulse Oximetry 97 08/30/24 10:07 Oxygen Delivery Method Room Air 08/30/24 10:07 Vital Signs Temperature 96.9 F L 08/30/24 10:07 Pulse Rate 115 H 08/30/24 10:07 Respiratory Rate 18 08/30/24 10:07 Blood Pressure 94/66 08/30/24 10:07 Pulse Oximetry 97 08/30/24 10:07 Oxygen Delivery Method Room Air 08/30/24 10:07 Temperature 97.6 F 08/30/24 17:45 Pulse Rate 113 H 08/30/24 22:02 Respiratory Rate 18 08/30/24 10:07 Blood Pressure 110/64 08/30/24 22:02 Pulse Oximetry 98 08/30/24 22:02 Oxygen Delivery Method Room Air 08/30/24 17:45 <Jono Trinh MD - Last Filed: 08/31/24 13:06> Medications Administered Medications: Discontinued Medications Generic Name Dose Route Start Last Admin Trade Name Freq PRN Reason Stop Dose Admin Ceftriaxone Sodium 2 gm/ 100 mls @ 200 mls/hr 08/30/24 13:20 08/30/24 14:05 Sodium Chloride IVPB 08/30/24 13:49 Infused ONCE ONE Infusion Sodium Bicarbonate 150 meq/ 1,150 mls @ 150 mls/hr 08/30/24 14:45 08/30/24 21:05 Dextrose IV 08/30/24 22:24 0 mls/hr .[id number] GABE Infusion Sodium Chloride 1,000 mls @ 75 mls/hr 08/30/24 18:55 08/30/24 21:08 0.9 % Sodium Chloride 1000 Ml IV 75 mls/hr .[id number] GABE Administration <Alexey Blevins MD - Last Filed: 08/30/24 15:00> Discontinued Medications Generic Name Dose Route Start Last Admin Trade Name Freq PRN Reason Stop Dose Admin Ceftriaxone Sodium 2 gm/ 100 mls @ 200 mls/hr 08/30/24 13:20 08/30/24 14:05 Sodium Chloride IVPB 08/30/24 13:49 Infused ONCE ONE Infusion Sodium Bicarbonate 150 meq/ 1,150 mls @ 150 mls/hr 08/30/24 14:45 08/30/24 21:05 Dextrose IV 08/30/24 22:24 0 mls/hr .[id number] GABE Infusion Sodium Chloride 1,000 mls @ 75 mls/hr 08/30/24 18:55 08/30/24 21:08 0.9 % Sodium Chloride 1000 Ml IV 75 mls/hr .[id number] GABE Administration <Estelita Newman MD - Last Filed: 08/30/24 19:18> Discontinued Medications Generic Name Dose Route Start Last Admin Trade Name Freq PRN Reason Stop Dose Admin Ceftriaxone Sodium 2 gm/ 100 mls @ 200 mls/hr 08/30/24 13:20 08/30/24 14:05 Sodium Chloride IVPB 08/30/24 13:49 Infused ONCE ONE Infusion Sodium Bicarbonate 150 meq/ 1,150 mls @ 150 mls/hr 08/30/24 14:45 08/30/24 21:05 Dextrose IV 08/30/24 22:24 0 mls/hr .[id number] GABE Infusion Sodium Chloride 1,000 mls @ 75 mls/hr 08/30/24 18:55 08/30/24 21:08 0.9 % Sodium Chloride 1000 Ml IV 75 mls/hr .[id number] GABE Administration <Jono Trinh MD - Last Filed: 08/31/24 13:06> Medical Decision Making Lab Data Labs: Lab Results 08/30/24 08/30/24 08/30/24 Range/Units 10:37 11:59 17:52 WBC 7.18 (4.50-11.00) K/uL RBC 3.19 L (4.00-5.20) m/uL Hgb 9.8 L (12.0-16.0) gm/dL Hct 29.6 L (33.0-51.0) % MCV 93 (80-100) fL MCH 31 (26-34) pg MCHC 33 (32-36) gm/dL RDW Coeff of Hammad 15.2 (11.5-15.5) % Plt Count 225 (140-440) K/uL Neut % (Auto) 78.8 H (42.0-72.0) % Lymph % (Auto) 7.4 L (20-44) % [place] % (Auto) 12.4 H (0.0-11.0) % Eos % (Auto) 0.6 (0.0-7.0) % Baso % (Auto) 0.1 (0.0-3.0) % Neut # (Auto) 5.70 (1.7-7.0) K/uL Lymph # (Auto) 0.50 L (0.90-2.90) K/uL [place] # (Auto) 0.90 (0.00-0.90) K/UL Eos # (Auto) 0.04 (0.00-0.50) K/uL Baso # (Auto) 0.01 (0.00-0.30) K/uL Abs Immat Gran (auto) 0.05 (0.00-0.30) K/uL Imm/Tot Granulo (auto) 0.7 % VBG pH 7.186 L* 7.333 (7.32-7.43) VBG pCO2 26 L 25 L (40-50) mmHG VBG pO2 34.9 39.7 (25-47) mmHG VBG HCO3 10 L 13 L (21-28) mmol/L Sodium 127 L 128 L (135-149) mmol/L Potassium 5.2 H 4.5 (3.6-5.1) mmol/L Chloride 100 100 (96-114) mmol/L Carbon Dioxide 7 L* 11 L (20-32) mmol/L Anion Gap 20 H 17 H (7-15) mEq/L BUN 93 H 90 H (7-30) mg/dL Creatinine 4.7 H 4.2 H (0.5-1.5) mg/dL Estimated Creat Clear 9.87 11.05 Estimated GFR 10 11 ml/min Glucose 150 H 158 H (60-115) mg/dL Lactate 1.6 (0.5-1.9) mmol/L Calcium 9.7 9.0 (8.4-10.6) mg/dL Magnesium 1.6 (1.5-2.6) mg/dL Total Bilirubin 0.7 (0.1-1.5) mg/dL AST 21 (12-35) U/L ALT 21 (4-35) U/L Alkaline Phosphatase 107 (40-150) U/L C-Reactive Protein 34.2 H (0.5-1.0) mg/dL Total Protein 8.0 (6.0-8.3) g/dL Albumin 4.2 (3.3-5.0) g/dL Urine Color Brown A (Yellow) Urine Appearance Cloudy A (Clear) Urine pH 7.5 (5.0-8.5) Ur Specific [place] 1.010 (1.000-1.030) Urine Protein 2+ A (Negative) Urine Glucose (UA) Negative (Negative) Urine Ketones Negative (Negative) Urine Blood 2+ A (Negative) Urine Nitrite Negative (Negative) Urine Bilirubin Negative (Negative) Urine Urobilinogen 0.2 (0.2-1.0) Ur Leukocyte Esterase 3+ A (Negative) Urine RBC 2-5 A (0-2) Urine WBC >100 A (0-5) Urine WBC Clumps Many A (None) Ur Squamous Epith Cells Few (None-Few) Urine Bacteria Many A (None) 08/30/24 Range/Units 20:46 WBC (4.50-11.00) K/uL RBC (4.00-5.20) m/uL Hgb (12.0-16.0) gm/dL Hct (33.0-51.0) % MCV (80-100) fL MCH (26-34) pg MCHC (32-36) gm/dL RDW Coeff of Hammad (11.5-15.5) % Plt Count (140-440) K/uL Neut % (Auto) (42.0-72.0) % Lymph % (Auto) (20-44) % [place] % (Auto) (0.0-11.0) % Eos % (Auto) (0.0-7.0) % Baso % (Auto) (0.0-3.0) % Neut # (Auto) (1.7-7.0) K/uL Lymph # (Auto) (0.90-2.90) K/uL [place] # (Auto) (0.00-0.90) K/UL Eos # (Auto) (0.00-0.50) K/uL Baso # (Auto) (0.00-0.30) K/uL Abs Immat Gran (auto) (0.00-0.30) K/uL Imm/Tot Granulo (auto) % VBG pH 7.437 H (7.32-7.43) VBG pCO2 22 L (40-50) mmHG VBG pO2 70.1 H (25-47) mmHG VBG HCO3 15 L (21-28) mmol/L Sodium (135-149) mmol/L Potassium (3.6-5.1) mmol/L Chloride (96-114) mmol/L Carbon Dioxide (20-32) mmol/L Anion Gap (7-15) mEq/L BUN (7-30) mg/dL Creatinine (0.5-1.5) mg/dL Estimated Creat Clear Estimated GFR ml/min Glucose (60-115) mg/dL Lactate (0.5-1.9) mmol/L Calcium (8.4-10.6) mg/dL Magnesium (1.5-2.6) mg/dL Total Bilirubin (0.1-1.5) mg/dL AST (12-35) U/L ALT (4-35) U/L Alkaline Phosphatase (40-150) U/L C-Reactive Protein (0.5-1.0) mg/dL Total Protein (6.0-8.3) g/dL Albumin (3.3-5.0) g/dL Urine Color (Yellow) Urine Appearance (Clear) Urine pH (5.0-8.5) Ur Specific [place] (1.000-1.030) Urine Protein (Negative) Urine Glucose (UA) (Negative) Urine Ketones (Negative) Urine Blood (Negative) Urine Nitrite (Negative) Urine Bilirubin (Negative) Urine Urobilinogen (0.2-1.0) Ur Leukocyte Esterase (Negative) Urine RBC (0-2) Urine WBC (0-5) Urine WBC Clumps (None) Ur Squamous Epith Cells (None-Few) Urine Bacteria (None) <Alexey Blevins MD - Last Filed: 08/30/24 15:00> Lab Results 08/30/24 08/30/24 08/30/24 Range/Units 10:37 11:59 17:52 WBC 7.18 (4.50-11.00) K/uL RBC 3.19 L (4.00-5.20) m/uL Hgb 9.8 L (12.0-16.0) gm/dL Hct 29.6 L (33.0-51.0) % MCV 93 (80-100) fL MCH 31 (26-34) pg MCHC 33 (32-36) gm/dL RDW Coeff of Hammad 15.2 (11.5-15.5) % Plt Count 225 (140-440) K/uL Neut % (Auto) 78.8 H (42.0-72.0) % Lymph % (Auto) 7.4 L (20-44) % [place] % (Auto) 12.4 H (0.0-11.0) % Eos % (Auto) 0.6 (0.0-7.0) % Baso % (Auto) 0.1 (0.0-3.0) % Neut # (Auto) 5.70 (1.7-7.0) K/uL Lymph # (Auto) 0.50 L (0.90-2.90) K/uL [place] # (Auto) 0.90 (0.00-0.90) K/UL Eos # (Auto) 0.04 (0.00-0.50) K/uL Baso # (Auto) 0.01 (0.00-0.30) K/uL Abs Immat Gran (auto) 0.05 (0.00-0.30) K/uL Imm/Tot Granulo (auto) 0.7 % VBG pH 7.186 L* 7.333 (7.32-7.43) VBG pCO2 26 L 25 L (40-50) mmHG VBG pO2 34.9 39.7 (25-47) mmHG VBG HCO3 10 L 13 L (21-28) mmol/L Sodium 127 L 128 L (135-149) mmol/L Potassium 5.2 H 4.5 (3.6-5.1) mmol/L Chloride 100 100 (96-114) mmol/L Carbon Dioxide 7 L* 11 L (20-32) mmol/L Anion Gap 20 H 17 H (7-15) mEq/L BUN 93 H 90 H (7-30) mg/dL Creatinine 4.7 H 4.2 H (0.5-1.5) mg/dL Estimated Creat Clear 9.87 11.05 Estimated GFR 10 11 ml/min Glucose 150 H 158 H (60-115) mg/dL Lactate 1.6 (0.5-1.9) mmol/L Calcium 9.7 9.0 (8.4-10.6) mg/dL Magnesium 1.6 (1.5-2.6) mg/dL Total Bilirubin 0.7 (0.1-1.5) mg/dL AST 21 (12-35) U/L ALT 21 (4-35) U/L Alkaline Phosphatase 107 (40-150) U/L C-Reactive Protein 34.2 H (0.5-1.0) mg/dL Total Protein 8.0 (6.0-8.3) g/dL Albumin 4.2 (3.3-5.0) g/dL Urine Color Brown A (Yellow) Urine Appearance Cloudy A (Clear) Urine pH 7.5 (5.0-8.5) Ur Specific [place] 1.010 (1.000-1.030) Urine Protein 2+ A (Negative) Urine Glucose (UA) Negative (Negative) Urine Ketones Negative (Negative) Urine Blood 2+ A (Negative) Urine Nitrite Negative (Negative) Urine Bilirubin Negative (Negative) Urine Urobilinogen 0.2 (0.2-1.0) Ur Leukocyte Esterase 3+ A (Negative) Urine RBC 2-5 A (0-2) Urine WBC >100 A (0-5) Urine WBC Clumps Many A (None) Ur Squamous Epith Cells Few (None-Few) Urine Bacteria Many A (None) 08/30/24 Range/Units 20:46 WBC (4.50-11.00) K/uL RBC (4.00-5.20) m/uL Hgb (12.0-16.0) gm/dL Hct (33.0-51.0) % MCV (80-100) fL MCH (26-34) pg MCHC (32-36) gm/dL RDW Coeff of Hammad (11.5-15.5) % Plt Count (140-440) K/uL Neut % (Auto) (42.0-72.0) % Lymph % (Auto) (20-44) % [place] % (Auto) (0.0-11.0) % Eos % (Auto) (0.0-7.0) % Baso % (Auto) (0.0-3.0) % Neut # (Auto) (1.7-7.0) K/uL Lymph # (Auto) (0.90-2.90) K/uL [place] # (Auto) (0.00-0.90) K/UL Eos # (Auto) (0.00-0.50) K/uL Baso # (Auto) (0.00-0.30) K/uL Abs Immat Gran (auto) (0.00-0.30) K/uL Imm/Tot Granulo (auto) % VBG pH 7.437 H (7.32-7.43) VBG pCO2 22 L (40-50) mmHG VBG pO2 70.1 H (25-47) mmHG VBG HCO3 15 L (21-28) mmol/L Sodium (135-149) mmol/L Potassium (3.6-5.1) mmol/L Chloride (96-114) mmol/L Carbon Dioxide (20-32) mmol/L Anion Gap (7-15) mEq/L BUN (7-30) mg/dL Creatinine (0.5-1.5) mg/dL Estimated Creat Clear Estimated GFR ml/min Glucose (60-115) mg/dL Lactate (0.5-1.9) mmol/L Calcium (8.4-10.6) mg/dL Magnesium (1.5-2.6) mg/dL Total Bilirubin (0.1-1.5) mg/dL AST (12-35) U/L ALT (4-35) U/L Alkaline Phosphatase (40-150) U/L C-Reactive Protein (0.5-1.0) mg/dL Total Protein (6.0-8.3) g/dL Albumin (3.3-5.0) g/dL Urine Color (Yellow) Urine Appearance (Clear) Urine pH (5.0-8.5) Ur Specific [place] (1.000-1.030) Urine Protein (Negative) Urine Glucose (UA) (Negative) Urine Ketones (Negative) Urine Blood (Negative) Urine Nitrite (Negative) Urine Bilirubin (Negative) Urine Urobilinogen (0.2-1.0) Ur Leukocyte Esterase (Negative) Urine RBC (0-2) Urine WBC (0-5) Urine WBC Clumps (None) Ur Squamous Epith Cells (None-Few) Urine Bacteria (None) <Estelita R Suchomel-Felix, MD - Last Filed: 08/30/24 19:18> Lab Results 08/30/24 08/30/24 08/30/24 Range/Units 10:37 11:59 17:52 WBC 7.18 (4.50-11.00) K/uL RBC 3.19 L (4.00-5.20) m/uL Hgb 9.8 L (12.0-16.0) gm/dL Hct 29.6 L (33.0-51.0) % MCV 93 (80-100) fL MCH 31 (26-34) pg MCHC 33 (32-36) gm/dL RDW Coeff of Hammad 15.2 (11.5-15.5) % Plt Count 225 (140-440) K/uL Neut % (Auto) 78.8 H (42.0-72.0) % Lymph % (Auto) 7.4 L (20-44) % [place] % (Auto) 12.4 H (0.0-11.0) % Eos % (Auto) 0.6 (0.0-7.0) % Baso % (Auto) 0.1 (0.0-3.0) % Neut # (Auto) 5.70 (1.7-7.0) K/uL Lymph # (Auto) 0.50 L (0.90-2.90) K/uL [place] # (Auto) 0.90 (0.00-0.90) K/UL Eos # (Auto) 0.04 (0.00-0.50) K/uL Baso # (Auto) 0.01 (0.00-0.30) K/uL Abs Immat Gran (auto) 0.05 (0.00-0.30) K/uL Imm/Tot Granulo (auto) 0.7 % VBG pH 7.186 L* 7.333 (7.32-7.43) VBG pCO2 26 L 25 L (40-50) mmHG VBG pO2 34.9 39.7 (25-47) mmHG VBG HCO3 10 L 13 L (21-28) mmol/L Sodium 127 L 128 L (135-149) mmol/L Potassium 5.2 H 4.5 (3.6-5.1) mmol/L Chloride 100 100 (96-114) mmol/L Carbon Dioxide 7 L* 11 L (20-32) mmol/L Anion Gap 20 H 17 H (7-15) mEq/L BUN 93 H 90 H (7-30) mg/dL Creatinine 4.7 H 4.2 H (0.5-1.5) mg/dL Estimated Creat Clear 9.87 11.05 Estimated GFR 10 11 ml/min Glucose 150 H 158 H (60-115) mg/dL Lactate 1.6 (0.5-1.9) mmol/L Calcium 9.7 9.0 (8.4-10.6) mg/dL Magnesium 1.6 (1.5-2.6) mg/dL Total Bilirubin 0.7 (0.1-1.5) mg/dL AST 21 (12-35) U/L ALT 21 (4-35) U/L Alkaline Phosphatase 107 (40-150) U/L C-Reactive Protein 34.2 H (0.5-1.0) mg/dL Total Protein 8.0 (6.0-8.3) g/dL Albumin 4.2 (3.3-5.0) g/dL Urine Color Brown A (Yellow) Urine Appearance Cloudy A (Clear) Urine pH 7.5 (5.0-8.5) Ur Specific [place] 1.010 (1.000-1.030) Urine Protein 2+ A (Negative) Urine Glucose (UA) Negative (Negative) Urine Ketones Negative (Negative) Urine Blood 2+ A (Negative) Urine Nitrite Negative (Negative) Urine Bilirubin Negative (Negative) Urine Urobilinogen 0.2 (0.2-1.0) Ur Leukocyte Esterase 3+ A (Negative) Urine RBC 2-5 A (0-2) Urine WBC >100 A (0-5) Urine WBC Clumps Many A (None) Ur Squamous Epith Cells Few (None-Few) Urine Bacteria Many A (None) 08/30/24 Range/Units 20:46 WBC (4.50-11.00) K/uL RBC (4.00-5.20) m/uL Hgb (12.0-16.0) gm/dL Hct (33.0-51.0) % MCV (80-100) fL MCH (26-34) pg MCHC (32-36) gm/dL RDW Coeff of Hammad (11.5-15.5) % Plt Count (140-440) K/uL Neut % (Auto) (42.0-72.0) % Lymph % (Auto) (20-44) % [place] % (Auto) (0.0-11.0) % Eos % (Auto) (0.0-7.0) % Baso % (Auto) (0.0-3.0) % Neut # (Auto) (1.7-7.0) K/uL Lymph # (Auto) (0.90-2.90) K/uL [place] # (Auto) (0.00-0.90) K/UL Eos # (Auto) (0.00-0.50) K/uL Baso # (Auto) (0.00-0.30) K/uL Abs Immat Gran (auto) (0.00-0.30) K/uL Imm/Tot Granulo (auto) % VBG pH 7.437 H (7.32-7.43) VBG pCO2 22 L (40-50) mmHG VBG pO2 70.1 H (25-47) mmHG VBG HCO3 15 L (21-28) mmol/L Sodium (135-149) mmol/L Potassium (3.6-5.1) mmol/L Chloride (96-114) mmol/L Carbon Dioxide (20-32) mmol/L Anion Gap (7-15) mEq/L BUN (7-30) mg/dL Creatinine (0.5-1.5) mg/dL Estimated Creat Clear Estimated GFR ml/min Glucose (60-115) mg/dL Lactate (0.5-1.9) mmol/L Calcium (8.4-10.6) mg/dL Magnesium (1.5-2.6) mg/dL Total Bilirubin (0.1-1.5) mg/dL AST (12-35) U/L ALT (4-35) U/L Alkaline Phosphatase (40-150) U/L C-Reactive Protein (0.5-1.0) mg/dL Total Protein (6.0-8.3) g/dL Albumin (3.3-5.0) g/dL Urine Color (Yellow) Urine Appearance (Clear) Urine pH (5.0-8.5) Ur Specific [place] (1.000-1.030) Urine Protein (Negative) Urine Glucose (UA) (Negative) Urine Ketones (Negative) Urine Blood (Negative) Urine Nitrite (Negative) Urine Bilirubin (Negative) Urine Urobilinogen (0.2-1.0) Ur Leukocyte Esterase (Negative) Urine RBC (0-2) Urine WBC (0-5) Urine WBC Clumps (None) Ur Squamous Epith Cells (None-Few) Urine Bacteria (None) <Jono Trinh MD - Last Filed: 08/31/24 13:06> Discharge Plan Discharge Clinical Impression: Acute renal failure due to urinary obstruction, Acidosis, metabolic <Alexey Blevins MD - Last Filed: 08/30/24 15:00> Patient Disposition: [facility] <Alexey Blevins MD - Last Filed: 08/30/24 15:00> Prescriptions: No Action sennosides [Senna Lax] 8.6 mg tablet 8.6 mg PO BID PRN (Reason: constipation) Qty: 60 5RF metformin 500 mg tablet extended release 24 hr 1,500 mg PO QDAY Qty: 270 1RF estradiol [Estrace] 0.01 % (0.1 mg/gram) cream 1 g vaginal 2XW Qty: 42.5 2RF nystatin 100,000 unit/gram Powder 1 applic topical BID Qty: 30 0RF (DME) lancets Misc See Rx Instructions .Route Qty: 200 0RF Rx Instructions: QID (DME) Blood Glucose Test Strip See Rx Instructions .Route Qty: 300 3RF Rx Instructions: As directed <Alexey Blevins MD - Last Filed: 08/30/24 15:00> Stand Alone Forms: MyHealth Info Instructions <Alexey Blevins MD - Last Filed: 08/30/24 15:00>
[2024-08-30 10:51] LABS: Basophils Absolute Auto 0.01 K/uL (0.00-0.30); Basophils Percent Auto 0.1 % (0.0-3.0); Eosinophils Absolute Auto 0.04 K/uL (0.00-0.50); Eosinophils Percent Auto 0.6 % (0.0-7.0); Hematocrit 29.6 % (33.0-51.0); Hemoglobin* 9.8 gm/dL (12.0-16.0); Immature Granulocytes Abs Auto 0.05 K/uL (0.00-0.30); Immature Granulocytes Pct Auto 0.7 %; Lymphocytes Percent Auto 7.4 % (20-44); Mean Corpuscular HGB Conc 33 gm/dL (32-36); Mean Corpuscular Hemoglobin 31 pg (26-34); Mean Corpuscular Volume 93 fL (80-100); Monocytes Percent Auto 12.4 % (0.0-11.0); Neutrophils Percent Auto 78.8 % (42.0-72.0); Platelet Count* 225 K/uL (140-440); RDW Coefficient of Variation % 15.2 % (11.5-15.5); Red Blood Count 3.19 m/uL (4.00-5.20); White Blood Count* 7.18 K/uL (4.50-11.00)
[2024-08-30 10:54] LABS: Slide Review Reflex No
[2024-08-30 11:00] LABS: Albumin* 4.2 g/dL (3.3-5.0); Chloride* 100 mmol/L (96-114)
[2024-08-30 11:01] LABS: Potassium* 5.2 mmol/L (3.6-5.1); Sodium* 127 mmol/L (135-149)
[2024-08-30 11:03] LABS: Alanine Aminotransferase* 21 U/L (4-35); Alkaline Phosphatase* 107 U/L (40-150); Anion Gap 20 mEq/L (7-15); Aspartate Amino Transferase* 21 U/L (12-35); Bilirubin Total* 0.7 mg/dL (0.1-1.5); Creatinine* 4.7 mg/dL (0.5-1.5); Est. Creatinine Clearance* 9.87; Estimated Glomerular Filt Rate 10 ml/min
[2024-08-30 11:04] LABS: Blood Urea Nitrogen* 93 mg/dL (7-30); Calcium* 9.7 mg/dL (8.4-10.6); Glucose* 150 mg/dL (60-115); Magnesium* 1.6 mg/dL (1.5-2.6)
[2024-08-30 11:11] LABS: Carbon Dioxide* 7 mmol/L (20-32)
[2024-08-30 11:32] LABS: C Reactive Protein* 34.2 mg/dL (0.5-1.0)
--- NOTE | 2024-08-30 11:36 | CT_ITS ---
Patient: GABE RINCON Facility:?[facility] Patient ID:?[id number] Site Patient ID:?[id number]. Site :?[id number] Study:?CT-Head WITHOUT-08/30/2024 12:14:06 PM Ordering Physician:Arelis Blackburn Final Report: INDICATION: CONFUSION. RECENT FALL COMPARISON: None TECHNIQUE: CT of the head without contrast. FINDINGS: Brain Parenchyma: No acute infarct, acute intracranial hemorrhage, mass effect, or midline shift. Ventricles: No hydrocephalus. Extra-axial Spaces: No abnormal fluid collection. Paranasal sinuses: No mucosal thickening. Orbits: Unremarkable Mastoid Sinuses: Unremarkable Cranium: No acute fracture Soft tissues: Unremarkable IMPRESSION: No CT evidence of an acute intracranial process or acute traumatic injury. Please note that all CT scans at this facility use dose modulation, iterative reconstruction, and/or weight-based dosing when appropriate to reduce radiation dose to as low as reasonably achievable. Dictated by Anthony Araujo MD @ 08/30/2024 12:32:37 PM Signed by:?Anthony Araujo MD @08/30/2024 12:32:37 PM (Electronic Signature)
--- NOTE | 2024-08-30 11:36 | CRLHL7_ITS ---
For Patients: As a result of the Century Cures Act, medical imaging exams and procedure reports are released immediately into your electronic medical record. You may view this report before your referring provider. If you have questions, please contact your health care provider. Indication: HX OF UTI, AVIVA, PYELONEPHRITIS ? Technique: HX OF UTI, AVIVA, PYELONEPHRITIS ? Comparison: None Findings: Lower thorax: Likely age-related subpleural reticulations seen in the right lower lobe. Solid 6 millimeter nodular like opacity seen in the medial aspect of the right lower lobe. Solid 2 millimeter pulmonary nodule in the anterolateral aspect of the left lower lobe. Abdomen/pelvis: No suspicious hepatic lesions. A few small calcified granulomas, likely sequela of remote granulomatous disease. Cholelithiasis without CT evidence of acute cholecystitis. No significant biliary ductal dilatation. Calcified granulomas in the spleen. The pancreas and bilateral adrenal glands are unremarkable in appearance. Severe right and moderate to severe left-sided hydroureteronephrosis without obstructing stones or lesions. No obvious renal mass or lesion. No renal calculi. The bladder wall is thickened with multiple trabeculations/small diverticuli, measuring up to approximately 11 millimeters in thickness. The uterus and bilateral adnexa are within normal limits in appearance. No evidence of bowel obstruction or inflammation. The appendix is normal. Colonic diverticulosis without CT evidence of acute diverticulitis. No free fluid or free air. No pathologically enlarged lymph nodes throughout the abdomen or pelvis. No abdominal aortic aneurysm. Mild calcific atherosclerosis of the aortoiliac system. Soft tissue/musculoskeletal: There are some degenerative changes throughout the spine. Mild degenerative changes of the bilateral sacroiliac and femoroacetabular joints. No suspicious osseous lesions. Impression: 1. Severe right-sided and moderate to severe left-sided hydroureteronephrosis without obstructing stones or lesions. 2. The bladder wall is thickened with multiple trabeculations/small diverticuli, measuring up to approximately 11 millimeters in thickness. 3. Findings may be secondary to outlet obstruction at the level of the urethra. 4. Additionally, bladder wall thickening can be seen with cystitis, correlate with urinalysis. 5. Solid 6 millimeter nodular like opacity seen in the medial aspect of the right lower lobe. Recommend correlation with prior imaging if available; otherwise, recommend CT chest in 3-6 months to reassess. Please note that all CT scans at this facility use dose modulation, iterative reconstruction, and/or weight-based dosing when appropriate to reduce radiation dose to as low as reasonably achievable. Dictated by Anthony Araujo MD @ 08/30/2024 12:46:04 PM (Electronically Signed)
[2024-08-30 12:33] LABS: Appearance Urine Cloudy (Clear); Color Urine Brown (Yellow); Glucose Urine Negative (Negative)
[2024-08-30 12:34] LABS: Bilirubin Urine Negative (Negative); Ketones Urine Negative (Negative)
[2024-08-30 12:37] LABS: Blood Urine 2+ (Negative); Protein Urine 2+ (Negative); pH Urine 7.5 (5.0-8.5)
[2024-08-30 12:38] LABS: Bacteria Urine Many; Leukocyte Esterase Urine 3+ (Negative); Nitrite Urine Negative (Negative); Squamous Epithelial Cell Urine Few (None-Few); Urobilinogen Urine 0.2 (0.2-1.0); WBC Clumps Urine Many; WBC Urine >100 (0-5)
[2024-08-30] MEDS: cefTRIAXone 2 GM in 0.9 % SODIUM CHLORIDE Mini-bag 100 ML IVPB (13:32)
[2024-08-30 14:01] LABS: PCO2 VBG 26 mmHG (40-50)
[2024-08-30 14:02] LABS: HCO3 VBG 10 mmol/L (21-28); PO2 VBG 34.9 mmHG (25-47); pH VBG 7.186 (7.32-7.43)
[2024-08-30 17:53] LABS: HCO3 VBG 13 mmol/L (21-28); PCO2 VBG 25 mmHG (40-50); PO2 VBG 39.7 mmHG (25-47); pH VBG 7.333 (7.32-7.43)
[2024-08-30 18:09] LABS: Chloride* 100 mmol/L (96-114); Potassium* 4.5 mmol/L (3.6-5.1); Sodium* 128 mmol/L (135-149)
[2024-08-30 18:12] LABS: Anion Gap 17 mEq/L (7-15); Blood Urea Nitrogen* 90 mg/dL (7-30); Carbon Dioxide* 11 mmol/L (20-32); Creatinine* 4.2 mg/dL (0.5-1.5); Est. Creatinine Clearance* 11.05; Estimated Glomerular Filt Rate 11 ml/min
[2024-08-30 18:13] LABS: Glucose* 158 mg/dL (60-115)
[2024-08-30 20:51] LABS: HCO3 VBG 15 mmol/L (21-28); PCO2 VBG 22 mmHG (40-50); PO2 VBG 70.1 mmHG (25-47); pH VBG 7.437 (7.32-7.43)
[2024-08-30] MEDS: 0.9 % SODIUM CHLORIDE 1000 ml 1,000 ML 75 ML IV (21:08)
--- NOTE | 2024-08-30 22:35 | ED.NURSE ---
Report to CRISTEL Shannon, who accepts transfer of patient care. Patient left department via [facility] en route to [facility] Rm [id number]. Patient's family took patient's belongings home.
== END 2024-08-30 22:39 | disposition short-term general hospital (02) ==
PROVIDERS: Student in an Organized Health Care Education/Training Program; Emergency Provider Family Medicine; PCP Family Medicine
DX: N17.9 Acute kidney failure, unspecified (principal); N13.9 Obstructive and reflux uropathy, unspecified; E87.20 Acidosis, unspecified
CPT/HCPCS: 36415; 70450; 74176; 80048; 80053; 81001; 82803; 83605; 83735; 85025; 86140; 87040; 87086; 87186; 93005; 96365; 99285; J0696; J7030; J7070

== ENCOUNTER 2024-08-30 22:29 | Outpatient (CLI) | payer MEDICARE, SELFPAY | END 2024-08-30 22:30 | disposition home or self-care (01) | LOC: AMB 08-31 23:51 | PROVIDERS: PCP Family Medicine; Visit Provider Family Medicine | DX: N28.89 Other specified disorders of kidney and ureter (principal) | CPT/HCPCS: A0425; A0429 ==

== ENCOUNTER 2024-09-12 13:43 | Outpatient (CLI) | payer MEDICARE, SELFPAY | END 2024-09-12 13:44 | disposition home or self-care (01) | PROVIDERS: PCP Family Medicine; Visit Provider Family Medicine | DX: N17.9 Acute kidney failure, unspecified (principal); N28.9 Disorder of kidney and ureter, unspecified | CPT/HCPCS: 80048; 85025; 87086 ==

== ENCOUNTER 2024-10-13 13:23 | Outpatient (REF) | payer MEDICARE, SELFPAY ==
[2024-10-13 13:59] LABS: Chloride* 109 mmol/L (96-114); Potassium* 4.1 mmol/L (3.6-5.1); Sodium* 139 mmol/L (135-149)
[2024-10-13 14:02] LABS: Anion Gap 10 mEq/L (7-15); Blood Urea Nitrogen* 45 mg/dL (7-30); Calcium* 9.4 mg/dL (8.4-10.6); Carbon Dioxide* 20 mmol/L (20-32); Creatinine* 2.5 mg/dL (0.5-1.5); Estimated Glomerular Filt Rate 21 ml/min; Glucose* 107 mg/dL (60-115)
== END 2024-10-13 13:24 | disposition home or self-care (01) ==
LOC: NPINS 13:23
PROVIDERS: PCP Family Medicine; Visit Provider Internal Medicine Nephrology
DX: N17.9 Acute kidney failure, unspecified (principal)
CPT/HCPCS: 80048

== ENCOUNTER 2024-11-13 08:00 | Outpatient (CLI) | payer MEDICARE, SELFPAY ==
[2024-11-13 14:26] LABS: Chloride* 111 mmol/L (96-114); Potassium* 4.6 mmol/L (3.6-5.1); Sodium* 141 mmol/L (135-149)
[2024-11-13 14:29] LABS: Anion Gap 12 mEq/L (7-15); Blood Urea Nitrogen* 69 mg/dL (7-30); Carbon Dioxide* 18 mmol/L (20-32); Creatinine* 3.1 mg/dL (0.5-1.5); Estimated Glomerular Filt Rate 16 ml/min; Glucose* 96 mg/dL (60-115)
== END 2024-11-13 08:01 | disposition home or self-care (01) ==
LOC: NPINS 08:03
PROVIDERS: PCP Family Medicine; Visit Provider Internal Medicine Nephrology
DX: N17.9 Acute kidney failure, unspecified (principal)
CPT/HCPCS: 80048

== ENCOUNTER 2024-11-22 10:01 | Outpatient (CLI) | payer MEDICARE, SELFPAY | END 2024-11-22 10:02 | disposition home or self-care (01) | LOC: US 10:02 | PROVIDERS: PCP Family Medicine; Visit Provider Internal Medicine Nephrology | DX: N18.4 Chronic kidney disease, stage 4 (severe) (principal); N13.30 Unspecified hydronephrosis; N32.0 Bladder-neck obstruction | CPT/HCPCS: 76770 ==

== ENCOUNTER 2024-12-14 09:13 | Outpatient (CLI) | payer MEDICARE, SELFPAY ==
[2024-12-14 13:29] LABS: Appearance Urine Cloudy (Clear); Bilirubin Urine Negative (Negative); Blood Urine 1+ (Negative); Color Urine Yellow (Yellow); Glucose Urine Negative (Negative); Ketones Urine Negative (Negative); Leukocyte Esterase Urine 3+ (Negative); Nitrite Urine Negative (Negative); Protein Urine 2+ (Negative); Urobilinogen Urine 0.2 (0.2-1.0)
[2024-12-14 13:30] LABS: Chloride* 103 mmol/L (96-114); Iron* 72 ug/dL (37-170)
[2024-12-14 13:31] LABS: Albumin* 4.5 g/dL (3.3-5.0); Potassium* 4.3 mmol/L (3.6-5.1); Sodium* 137 mmol/L (135-149)
[2024-12-14 13:33] LABS: Hemoglobin* 11.6 gm/dL (12.0-16.0)
[2024-12-14 13:34] LABS: Anion Gap 14 mEq/L (7-15); Blood Urea Nitrogen* 53 mg/dL (7-30); Calcium* 9.6 mg/dL (8.4-10.6); Carbon Dioxide* 20 mmol/L (20-32); Creatinine* 2.8 mg/dL (0.5-1.5); Estimated Glomerular Filt Rate 18 ml/min; Glucose* 105 mg/dL (60-115); Phosphorus* 4.3 mg/dL (2.5-4.5)
[2024-12-14 13:40] LABS: Percent Iron Saturation 23 % (20-50); Total Iron Binding Capacity 313 ug/dL (265-497)
[2024-12-14 13:48] LABS: Bacteria Urine Moderate; WBC Urine >100 (0-5)
[2024-12-14 13:53] LABS: Creatinine Urine 40.3 mg/dL
[2024-12-14 13:58] LABS: Microalbumin Creatinine Ratio 470 mg/g (0-30); Microalbumin Urine 19 mg/dL
== END 2024-12-14 09:14 | disposition home or self-care (01) ==
LOC: NPINS 09:16
PROVIDERS: PCP Family Medicine; Visit Provider Internal Medicine Nephrology
DX: N17.8 Other acute kidney failure (principal); D83.1 Common variable immunodeficiency with predominant immunoregulatory T-cell disorders
CPT/HCPCS: 80069; 81001; 82043; 82570; 82728; 83540; 83550; 85018; 87086

== ENCOUNTER 2025-02-23 09:54 | Outpatient (CLI) | payer MEDICARE, SELFPAY ==
[2025-02-23 13:33] LABS: Chloride* 109 mmol/L (96-114); Potassium* 4.6 mmol/L (3.6-5.1); Sodium* 139 mmol/L (135-149)
[2025-02-23 13:36] LABS: Anion Gap 11 mEq/L (7-15); Blood Urea Nitrogen* 57 mg/dL (7-30); Carbon Dioxide* 19 mmol/L (20-32); Creatinine* 2.8 mg/dL (0.5-1.5); Estimated Glomerular Filt Rate 18 ml/min
[2025-02-23 13:37] LABS: Calcium* 9.5 mg/dL (8.4-10.6); Glucose* 102 mg/dL (60-115)
== END 2025-02-23 09:55 | disposition home or self-care (01) ==
LOC: NPINS 09:55
PROVIDERS: PCP Family Medicine; Visit Provider Internal Medicine Nephrology
DX: N18.4 Chronic kidney disease, stage 4 (severe) (principal)
CPT/HCPCS: 80048

== ENCOUNTER 2025-04-09 09:58 | Outpatient (CLI) | payer MEDICARE, SELFPAY ==
[2025-04-09 13:33] LABS: Chloride* 105 mmol/L (96-114); Potassium* 4.6 mmol/L (3.6-5.1); Sodium* 136 mmol/L (135-149)
[2025-04-09 13:36] LABS: Anion Gap 10 mEq/L (7-15); Blood Urea Nitrogen* 54 mg/dL (7-30); Calcium* 9.2 mg/dL (8.4-10.6); Carbon Dioxide* 21 mmol/L (20-32); Creatinine* 2.6 mg/dL (0.5-1.5); Estimated Glomerular Filt Rate 20 ml/min; Glucose* 100 mg/dL (60-115); Phosphorus* 4.9 mg/dL (2.5-4.5)
[2025-04-09 13:37] LABS: Iron* 68 ug/dL (37-170)
[2025-04-09 13:40] LABS: Creatinine Urine 33.1 mg/dL
[2025-04-09 13:45] LABS: Microalbumin Creatinine Ratio 120 mg/g (0-30); Microalbumin Urine 4 mg/dL
[2025-04-09 15:06] LABS: PTH Intact* 60.6 pg/mL (14.2-75.2)
== END 2025-04-09 09:59 | disposition home or self-care (01) ==
LOC: NPINS 09:59
PROVIDERS: PCP Family Medicine; Visit Provider Internal Medicine Nephrology
DX: N18.4 Chronic kidney disease, stage 4 (severe) (principal); D63.1 Anemia in chronic kidney disease; E53.8 Deficiency of other specified B group vitamins; D50.8 Other iron deficiency anemias
CPT/HCPCS: 80069; 82043; 82570; 82607; 82728; 83540; 83970

== ENCOUNTER 2025-07-25 10:00 | Outpatient (CLI) | payer MEDICARE, SELFPAY ==
[2025-07-25 14:32] LABS: Hemoglobin* 10.9 gm/dL (12.0-16.0)
[2025-07-25 14:54] LABS: Iron* 53 ug/dL (37-170)
[2025-07-25 14:58] LABS: Albumin* 4.1 g/dL (3.3-5.0); Chloride* 104 mmol/L (96-114); Potassium* 4.6 mmol/L (3.6-5.1); Sodium* 132 mmol/L (135-149)
[2025-07-25 15:00] LABS: Blood Urea Nitrogen* 52 mg/dL (7-30); Creatinine* 2.7 mg/dL (0.5-1.5); Estimated Glomerular Filt Rate 19 ml/min
[2025-07-25 15:01] LABS: Anion Gap 8 mEq/L (7-15); Calcium* 9.3 mg/dL (8.4-10.6); Carbon Dioxide* 20 mmol/L (20-32); Glucose* 109 mg/dL (60-115)
[2025-07-25 15:03] LABS: Percent Iron Saturation 19 % (20-50); Total Iron Binding Capacity 281 ug/dL (265-497)
[2025-07-25 17:55] LABS: PTH Intact* 64.9 pg/mL (14.2-75.2)
[2025-07-25 18:31] LABS: Vitamin B12* 913 pg/mL (243-894)
== END 2025-07-25 10:01 | disposition home or self-care (01) ==
LOC: NPINS 10:01
PROVIDERS: PCP Family Medicine; Visit Provider Internal Medicine Nephrology
DX: N18.4 Chronic kidney disease, stage 4 (severe) (principal); D63.1 Anemia in chronic kidney disease; E53.8 Deficiency of other specified B group vitamins; D50.8 Other iron deficiency anemias
CPT/HCPCS: 80069; 82043; 82570; 82607; 82728; 83540; 83550; 83970; 85018

== ENCOUNTER 2025-08-13 10:19 | Outpatient (CLI) | payer MEDICARE, SELFPAY | END 2025-08-13 10:20 | disposition home or self-care (01) | PROVIDERS: PCP Family Medicine; Visit Provider Family Medicine | DX: E11.9 Type 2 diabetes mellitus without complications (principal); R53.83 Other fatigue | CPT/HCPCS: 80061; 84439; 84443 ==